=== PATIENT | female | born 1945 | race Caucasian/White ===

== ENCOUNTER 2018-11-22 14:53 | Observation (INO) | payer MEDICARE, OTHER ==
[~2018-11-22] VITALS: Ht 147.3 cm; Wt 43.1 kg
[2018-11-22] MEDS ORDERED: HYDROCODONE/APAP (5/325) TAB PO ONE (16:30)
[2018-11-22] MEDS ORDERED: ONDANSETRON 4 MG INJ IV PRN ×2 (19:30→20:00)
[2018-11-22] MEDS ORDERED: ACETAMINOPHEN 325 MG TAB PO PRN ×2 (19:30→20:00)
[2018-11-22] MEDS ORDERED: HYDROCODONE/APAP (5/325) TAB PO PRN (20:00)
[2018-11-22] MEDS ORDERED: NACL 0.9% 3 ML SYG IV SCH (20:00)
--- NOTE | 2018-11-22 20:35 | HP ---
Date/Time of Note Date/Time of Note DATE: 11/22/18 TIME: 20:34 Assessment/Plan VTE Prophylaxis Pharmacological prophylaxis: other Assessment/Plan Hospital Course Objective Physical exam General: Patient is laying in bed and answers questions appropriately Mentation: Patient is alert and oriented 4, Head: Normocephalic atraumatic Eyes: EOMI, pupils reactive to light Neck: Supple, nontender, midline Respiratory: Clear to auscultation bilaterally Cardiovascular: regular rate, no obvious murmurs Gastrointestinal: non-tender to palpation, bowel sounds heard. Neurological: Moves all extremities spontaneously Skin: No new skin lesions Assessment and plan Mechanical fall -Likely secondary to chronic worsening debility and degenerative spine disc disease -PT, OT -Lumbar spine negative for acute issues, chest x-ray and rib x-ray negative for acute fracture -Patient's pain also in the thoracic region, pending thoracic CT Left rib chest wall pain with back pain -Secondary to mechanical fall -[place] as needed Gastroparesis -Secondary to a long history of diabetes mellitus -Chronic, patient has outpatient follow-up Diabetes mellitus, questionable -Patient states she does not have diabetes mellitus anymore after losing a tremendous amount of weight -A1c pending Likely mitral valve regurgitation status post mitral clip device -Patient had a mitraclip procedure done at [facility], no complications, no medications prescribed afterwards History of SBO correction per surgery Disposition -Admit patient for inability to take care of self, high fall risk at home as she lives alone, PT, OT, likely placement -Follow-up with CT of the thoracic spine Result Diagram: 11/22/18194411/22/181944 Results 24hrs Laboratory Tests Test 11/22/18 19:45 White Blood Count 6.1 Red Blood Count 4.10 L Hemoglobin 12.2 Hematocrit 37.2 Mean Corpuscular Volume 90.7 Mean Corpuscular Hemoglobin 29.8 Mean Corpuscular Hemoglobin Concent 32.8 Red Cell Distribution Width 13.5 Platelet Count 179 Mean Platelet Volume 10.9 #H Immature Granulocytes % 0.300 Neutrophils % 70.6 Lymphocytes % 20.8 Monocytes % 6.1 Eosinophils % 1.5 Basophils % 0.7 Nucleated Red Blood Cells % 0.0 Immature Granulocytes # 0.020 Neutrophils # 4.3 Lymphocytes # 1.3 Monocytes # 0.4 Eosinophils # 0.1 Basophils # 0.0 Nucleated Red Blood Cells # 0.0 Urine Color YELLOW Urine Clarity SLIGHTLY CLOUDY A Urine pH 5.0 Urine Specific [place] 1.021 Urine Ketones NEGATIVE Urine Nitrite NEGATIVE Urine Bilirubin NEGATIVE Urine Urobilinogen NEGATIVE Urine Leukocyte Esterase 2+ H Urine Microscopic RBC 37 H Urine Microscopic WBC 30 H Urine Squamous Epithelial Cells FEW Urine Calcium Oxalate Crystals MODERATE Urine Mucus FEW A Urine Hemoglobin 2+ H Urine Glucose NEGATIVE Urine Total Protein NEGATIVE Sodium Level 144 Potassium Level 3.9 Chloride Level 104 Carbon Dioxide Level 27 Anion Gap 13 Blood Urea Nitrogen 26 H Creatinine 0.84 Est Glomerular Filtrat Rate mL/min Glucose Level 174 Calcium Level 9.5 HPI/ROS Admit Date/Time Admit Date/Time Hx of Present Illness Patient is a elderly female with a past medical history significant for prior diabetes that was corrected with extreme weight loss and subsequent gastroparesis as well as questionable heart valve issues and history of SBO who presents to [facility] for pain related to a mechanical fall approximately 3 days ago. Patient stated it was slippery and she fell on her left side and has been in pain for the past 3 days. Patient's pain has not subsided and subsequently patient came to the hospital. Patient states that recently she has becoming more weak and debilitated although there has been no acute incident. Patient has fallen multiple times in the past and currently seeks help and placement likely. 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 Patient currently denies chest pain, shortness of breath, headache, leg pain. Patient has chronic mild nausea and abdominal pain due to gastroparesis PMH/Family/Social Past Medical History Medications Current Medications IV Flush (NS 3 ml) 3 ml PER PROTOCOL IV ; Start 11/22/18 at 20:00 Ondansetron HCl (Zofran Inj) 4 mg Q6H PRN IV NAUSEA/VOMITING; Start 11/22/18 at 20:00 Acetaminophen (Tylenol Tab) 650 mg Q6H PRN PO .PAIN 1-3 OR TEMP; Start 11/22/18 at 20:00 Acetaminophen/ Hydrocodone Bitart ([place] (5/325)) 1 tab Q6H PRN PO .PAIN 4-6; Start 11/22/18 at 20:00 Coded Allergies: propofol (Verified Allergy, Intermediate, shaking, delusions, 11/22/18) hydromorphone (Verified Allergy, Unknown, HALLUCINATIONS,RASH,DIFFICULTY BREATHING,GI UPSET, 11/22/18) Social History Smoking Status: Never smoker Exam/Review of Systems Vital Signs Vitals Vital Signs Date Temp Pulse Resp B/P (MAP) Pulse Ox O2 O2 Flow FiO2 Time Delivery Rate 11/22/18 71 18 111/65 98 Room Air 17:20 (80) 11/22/18 98.6 14:55 LEONIDAS MUNOZ Nov 22, 2018 20:35
[2018-11-22 21:40] VITALS: BP 127/62; PULSE 70; RESP 18
--- NOTE | 2018-11-22 21:50 | NUR ---
RN NOTES: RECEIVED PATIENT FROM ER. PATIENT REPORTED THAT SHE FELL 3 DAYS AGO, AND HAD BACK PAIN TODAY AND WENT TO ER. ADMITTED FOR BACK PAIN DUE TO FALL. PATIENT IS ALERT AND ORIENTED. ABLE TO EXPRESS NEEDS. PATIENT HAD HX OF DM AND LOST A LOT OF WEIGHT AND DM BEEN RESOLVED. HX OF GASTROPARESIS, CARDIAC CLIP PLACEMENT. PATIENT IS COMFORTABLE AT THSI TIME. UNIT ORIENTATION GIVEN. FALL PRECAUTION INITIATED. CALL LIGHT WITHIN REACH.
[2018-11-22 22:27] VITALS: Ht 147.3 cm; Wt 43.1 kg
--- NOTE | 2018-11-22 22:33 | ERD ---
ER Documentation Chief Complaint Chief Complaint R81 fr home, back pain fell 3 days ago, ambulatory. HPI 73-year-old female brought in by ambulance from home with complaints of low back pain and left-sided chest pain after a ground-level fall about 4 days ago. She states that she tripped and fell onto her left side. Her pain has been severe, aching and sharp with movement, radiating across her lower back and across the left side of her chest. No alleviating factors. Exacerbated by movement. Pain is constant. Patient is unable to take NSAIDs due to her stomach. Patient feels she is unable to take care of herself at home while alone due to her symptoms. She denies any lower extremity numbness or weakness. No change in urinary or bowel habits. No dysuria. No hematuria. ROS All systems reviewed and are negative except as per history of present illness. Medications Home Meds Active Scripts Acetaminophen* (Tylenol*) 325 Mg Tablet, 650 MG PO Q4H PRN for MILD PAIN LEVEL 1-3, #30 TAB Prov:BARTOLOME ACKERMAN MD 11/23/18 Allergies Allergies: Coded Allergies: propofol (Verified Allergy, Intermediate, shaking, delusions, 11/22/18) hydromorphone (Verified Allergy, Unknown, HALLUCINATIONS,RASH,DIFFICULTY BREATHING,GI UPSET, 11/22/18) PMhx/Soc History of Surgery: Yes (gallbladder, hernia, r knee sx) Anesthesia Reaction: No Hx Neurological Disorder: No Hx Respiratory Disorders: No Hx Cardiac Disorders: Yes (Hypertension) Hx Psychiatric Problems: No Hx Miscellaneous Medical Probl: Yes (gastroporesis) Hx Alcohol Use: No Hx Substance Use: No Hx Tobacco Use: No Smoking Status: Never smoker FmHx Family History: No diabetes Physical Exam Vitals Vital Signs Date Temp Pulse Resp B/P (MAP) Pulse Ox O2 O2 Flow FiO2 Time Delivery Rate 11/22/18 71 18 111/65 98 Room Air 17:20 (80) 11/22/18 98.6 87 18 135/65 98 14:55 (88) Physical Exam Const: No acute distress Head: Atraumatic Eyes: Normal Conjunctiva ENT: Normal External Ears, Nose and Mouth. Neck: Full range of motion. No meningismus. Resp: Clear to auscultation bilaterally Chest wall: Left-sided chest wall tenderness without any irregularities noted or crepitus Cardio: Regular rate and rhythm, no murmurs. 2+ distal pulses in all 4 extremities Abd: Soft, non tender, non distended. Normal bowel sounds Skin: No petechiae or rashes Back: Diffuse midline and paraspinal muscle tenderness in the lumbar region Ext: Normal to inspection and palpation. No cyanosis, or edema Neur: Awake and alert, oriented x3, normal speech, no facial asymmetry, strength and sensations intact in all 4 extremities Psych: Normal Mood and Affect Result Diagram: 11/23/18 0453 11/23/183 Results 24 hrs Current Medications Medications Dose Sig/Andres Start Time Status Last (Trade) Ordered Route PRN Stop Time Admin Dose Reason Admin 1 tab ONCE ONCE 11/22/18 DC 11/22/18 Acetaminophen PO 16:30 16:16 / 11/22/18 16:31 Hydrocodone Bitart ([place] (5/325)) Procedures/MDM EMERGENT LABS AND DIAGNOSTIC STUDIES: Lab Results above were reviewed and interpreted by me. CBC: Mild anemia. No evidence of infection BMP: Mild BUN elevation, possibly secondary to dehydration. Past no evidence of electrolyte abnormality, renal failure, DKA UA: pending Radiology Results as interpreted by Radiology below were reviewed by Eva Mcdonald MD: CT lumbar spine shows no acute abnormalities, degenerative changes noted Chest x-ray and left rib x-ray show no signs of rib fractures or other acute abnormalities Initial Nursing notes reviewed. Previous Medical Records requested via the Electronic Health Record. EMERGENCY DEPARTMENT COURSE / MEDICAL DECISION MAKING: Patient is presenting after a mechanical fall about 4 days ago with complaints of back pain and left-sided rib pain. Vitals are stable. She is neurovascularly intact. X-rays of the ribs were done and were normal. Chest x- ray was normal. Her lumbar spine CT did show extensive degenerative changes but no acute abnormalities. I doubt acute spinal cord compression. Patient was given oral [place] for pain. She states that there was only minimal improvement of her pain. She states that when she walks she has worsening pain. She does live alone and does not feel comfortable going home at this time due to her history of frequent falls and now with the back pain she feels that she is more prone to falling. I feel the patient is not safe for discharge home and will be admitted for PT evaluation and treatment. Accepting Care Team: Current data and ongoing care discussed. Time: Time of admission Primary Provider: Dr. Ludwig Thacker Outstanding Data: UA Departure Diagnosis: Primary Impression: Back pain Back pain location: low back pain Chronicity: acute Back pain laterality: left Sciatica presence: without sciatica Qualified Codes: M54.5 - Low back pain Additional Impressions: Falls Encounter type: initial encounter Qualified Codes: W19.XXXA - Unspecified fall, initial encounter Contusion of rib on left side Encounter type: initial encounter Qualified Codes: S20.212A - Contusion of left front wall of thorax, initial encounter Condition: Serious DRU MCDONALD MD Nov 22, 2018 22:33
--- NOTE | 2018-11-23 00:20 | NUR ---
RN NOTES FULL REPORT GIVEN TO ANNA BONILLA RN TO CONTINUE PLAN OF CARE.
[2018-11-23 02:15] VITALS: BP 107/55; PULSE 80; RESP 18
[2018-11-23 07:16] VITALS: BP 125/58; PULSE 83; RESP 18
--- NOTE | 2018-11-23 07:44 | NUR ---
End of Shift Summary: Pt is A&O x4. Vital signs within normal limits. No acute changes. Respiratory and hemodynamics remain stable. Patient denies chest pain, palpitations, shortness of breath, nausea, vomiting, headache, cough, or changes in bowel/bladder habits. Pt on regular diet. Pt is on bedrest status. Pt received norco for pain management. IV site is intact and asystematic. Safety precautions maintained throughout the shift. Bed in lowest position and bed alarm activated. Call light within reach. Hourly rounding rendered. All needs met.
--- NOTE | 2018-11-23 08:00 | NUR ---
OT EVAL: Therapy day number 1 Evaluation Start Time 08:00 Evaluation End Time 08:40 Evaluation Total Time 40 min Pain Intensity 5 (0-10) Patient Stated Goal for Pain Relief 0 (0-10) Pain Scale NUMERIC Pain Level Comment left shoulder Feeding Mechanics Independent Bed Mobility Supine to Sit Independent Transfer Sit to Stand Ability Supervised Bed Mobility Sit to Supine Independent Toileting Ability Supervised Assistive Devices Front Wheel Walker Hygiene Ability Independent Lower Extremity Dressing Independent Toileting Ability Supervised Toilet Transfer Ability Supervised Post Treatment Pain Intensity 5 (0-10) OT Technical Record Comment OT EVAL: 73 yo female presents s/p mechanical fall. CTs for lumbar spine, thoracic spine, ribs x-ray (-) acute. Lumbar spine CT shows multi-level DJD and stenosis . Precautions: None PLOF: Pt currently lives alone in a 1 story apt, 8 steps with rails to enter, with CG 3-4/wk. Edgar in home with no AD, 4WW and SBA for community ambulation. CLOF: Pt found supine in bed, is agreeable to OT . RN cleared pt for OT. Pt AOX4, stated 5/10 pain in her left shoulder and demonstrated BUE AROM WFL. Pt performed UB/LB dressing and h/g independently. Pt proceeded to completed toilet transfer and functional mob using FWW with supervision and good safety awareness. Pt left supine in bed with all needs met. RN notified. NO skilled OT warranted at this time as pt is independent/supervision with ADl's- D/C OT
--- NOTE | 2018-11-23 10:15 | NUR ---
PT EVALUATION Therapy day number 1 Evaluation Start Time 10:15 Evaluation End Time 11:15 Evaluation Total Time 60 min Subjective Current complaint of pain Pain Scale NUMERIC Pain Intensity 2 (0-10) Patient Stated Goal for Pain Relief 0 (0-10) Pain Level Comment pain in L arm and L chest Pre Treatment Vital Signs Stable Yes Supine to Sit Modified Independent Transfer Sit to Stand Ability Modified Independent Bed Mobility Sit to Supine Modified Independent Bed Transfer Ability Modified Independent Chair Transfer Ability Modified Independent Gait Assist Levels Modified Independent Assistive Devices None Ambulation Distance 300 feet Additional Gait Comments upright posture, reciprocal steps, good layla and step length Stair Climbing Ability Modified Independent Number of Stairs 8 Stairs Additional Stairs Assist Comments 8 stairs with FINANCIAL SALES ASSOCIATE and railing, 8 stairs with BUE on single rail Static Sitting Balance Good Dynamic Sitting Balance Good Standing Static Balance Good Dynamic Standing Balance Good Safety Judgement Good Activity Tolerance Good Equipment Present A pump Post Treatment Pain Intensity 0 0-10 Total Minutes 60 Total Units 4 PT Technical Record Comment 73 yo female presents s/p mechanical fall. CTs for lumbar spine, thoracic spine, ribs x-ray (-) acute. Lumbar spine CT shows multi-level DJD and stenosis . Precautions: None PLOF: Pt currently lives alone in a 1 story apt, 8 steps with rails to enter, with CG 3-4/wk. Edgar in home with no AD, 4WW and SBA for community ambulation. S: Pt found supine in bed, is agreeable to PT. RN cleared pt for activity. O: PT Evaluation complete, pt assisted back to bed with call light nearby, all needs met. No increase pain, nausea, dizziness, SOB with activity. Pt ambulated 300' Edgar with no AD, no LOB or buckling, and 8 steps Edgar with BUE on single railing. RN informed of pt response to activity. A: Pt demonstrates strong mobility throughout with good balance, strength, coordination, and tolerance for activity. Pt ambulated with upright posture, reciprocal steps, good layla, no LOB, with no AD. Pt is at her baseline, no skilled inpatient PT needed at this time. P: Discharge physical therapy. Pt is clear to DC from PT standpoint. No DME needed at this time.
--- NOTE | 2018-11-23 10:51 | PN ---
Date/Time of Note Date/Time of Note DATE: 11/23/18 TIME: 10:51 Assessment/Plan VTE Prophylaxis SCD contraindicated: low risk/ambulating Pharmacological prophylaxis: NA/contraindicated Pharm contraindication: patient refusal Lines/Catheters IV Catheter Type (from Nrsg): Saline Lock Urinary Cath still in place: No Assessment/Plan Assessment/Plan acute back pain S/P fall OA with spinal stenosis Paln: pain control, Physical therapy pt has Front wheel walker at home d/c home today Result Diagram: 11/23/18 0453 11/23/18 0453 Results 24hrs Laboratory Tests Test 11/22/18 19:45 11/23/18 04:53 White Blood Count 6.1 5.5 Red Blood Count 4.10 L 3.51 L Hemoglobin 12.2 10.4 L Hematocrit 37.2 32.0 L Mean Corpuscular Volume 90.7 91.2 Mean Corpuscular Hemoglobin 29.8 29.6 Mean Corpuscular Hemoglobin Concent 32.8 32.5 Red Cell Distribution Width 13.5 13.5 Platelet Count 179 169 Mean Platelet Volume 10.9 #H 11.8 H Immature Granulocytes % 0.300 0.400 Neutrophils % 70.6 63.1 Lymphocytes % 20.8 23.6 Monocytes % 6.1 9.5 Eosinophils % 1.5 2.7 Basophils % 0.7 0.7 Nucleated Red Blood Cells % 0.0 0.0 Immature Granulocytes # 0.020 0.020 Neutrophils # 4.3 3.5 Lymphocytes # 1.3 1.3 Monocytes # 0.4 0.5 Eosinophils # 0.1 0.2 Basophils # 0.0 0.0 Nucleated Red Blood Cells # 0.0 0.0 Urine Color YELLOW Urine Clarity SLIGHTLY CLOUDY A Urine pH 5.0 Urine Specific [place] 1.021 Urine Ketones NEGATIVE Urine Nitrite NEGATIVE Urine Bilirubin NEGATIVE Urine Urobilinogen NEGATIVE Urine Leukocyte Esterase 2+ H Urine Microscopic RBC 37 H Urine Microscopic WBC 30 H Urine Squamous Epithelial Cells FEW Urine Calcium Oxalate Crystals MODERATE Urine Mucus FEW A Urine Hemoglobin 2+ H Urine Glucose NEGATIVE Urine Total Protein NEGATIVE Sodium Level 144 141 Potassium Level 3.9 3.5 Chloride Level 104 106 Carbon Dioxide Level 27 26 Anion Gap 13 9 Blood Urea Nitrogen 26 H 27 H Creatinine 0.84 0.84 Est Glomerular Filtrat Rate mL/min Glucose Level 174 121 # Calcium Level 9.5 9.2 Hemoglobin A1c 5.4 Magnesium Level 1.7 Total Bilirubin 0.1 L Direct Bilirubin 0.00 Indirect Bilirubin 0.1 Aspartate Amino Transf (AST/SGOT) 27 Alanine Aminotransferase (ALT/SGPT) 18 Alkaline Phosphatase 62 Total Protein 6.8 Albumin 3.8 Globulin 3.00 Albumin/Globulin Ratio 1.26 Exam/Review of Systems Exam Vitals Vital Signs Date Temp Pulse Resp B/P (MAP) Pulse Ox O2 O2 Flow FiO2 Time Delivery Rate 11/23/18 98.0 83 18 125/58 100 Room Air 07:16 (80) Intake and Output 11/22/18 11/22/18 11/23/18 1515:00 23:00 07:00 IntakeIntake Total 300 ml 150 ml BalanceBalance 300 ml 150 ml Results Results 24hrs Laboratory Tests Test 11/22/18 19:45 11/23/18 04:53 White Blood Count 6.1 5.5 Red Blood Count 4.10 L 3.51 L Hemoglobin 12.2 10.4 L Hematocrit 37.2 32.0 L Mean Corpuscular Volume 90.7 91.2 Mean Corpuscular Hemoglobin 29.8 29.6 Mean Corpuscular Hemoglobin Concent 32.8 32.5 Red Cell Distribution Width 13.5 13.5 Platelet Count 179 169 Mean Platelet Volume 10.9 #H 11.8 H Immature Granulocytes % 0.300 0.400 Neutrophils % 70.6 63.1 Lymphocytes % 20.8 23.6 Monocytes % 6.1 9.5 Eosinophils % 1.5 2.7 Basophils % 0.7 0.7 Nucleated Red Blood Cells % 0.0 0.0 Immature Granulocytes # 0.020 0.020 Neutrophils # 4.3 3.5 Lymphocytes # 1.3 1.3 Monocytes # 0.4 0.5 Eosinophils # 0.1 0.2 Basophils # 0.0 0.0 Nucleated Red Blood Cells # 0.0 0.0 Urine Color YELLOW Urine Clarity SLIGHTLY CLOUDY A Urine pH 5.0 Urine Specific [place] 1.021 Urine Ketones NEGATIVE Urine Nitrite NEGATIVE Urine Bilirubin NEGATIVE Urine Urobilinogen NEGATIVE Urine Leukocyte Esterase 2+ H Urine Microscopic RBC 37 H Urine Microscopic WBC 30 H Urine Squamous Epithelial Cells FEW Urine Calcium Oxalate Crystals MODERATE Urine Mucus FEW A Urine Hemoglobin 2+ H Urine Glucose NEGATIVE Urine Total Protein NEGATIVE Sodium Level 144 141 Potassium Level 3.9 3.5 Chloride Level 104 106 Carbon Dioxide Level 27 26 Anion Gap 13 9 Blood Urea Nitrogen 26 H 27 H Creatinine 0.84 0.84 Est Glomerular Filtrat Rate mL/min Glucose Level 174 121 # Calcium Level 9.5 9.2 Hemoglobin A1c 5.4 Magnesium Level 1.7 Total Bilirubin 0.1 L Direct Bilirubin 0.00 Indirect Bilirubin 0.1 Aspartate Amino Transf (AST/SGOT) 27 Alanine Aminotransferase (ALT/SGPT) 18 Alkaline Phosphatase 62 Total Protein 6.8 Albumin 3.8 Globulin 3.00 Albumin/Globulin Ratio 1.26 Medications Medication Current Medications IV Flush (NS 3 ml) 3 ml PER PROTOCOL IV ; Start 11/22/18 at 20:00 Ondansetron HCl (Zofran Inj) 4 mg Q6H PRN IV NAUSEA/VOMITING; Start 11/22/18 at 20:00 Acetaminophen (Tylenol Tab) 650 mg Q6H PRN PO .PAIN 1-3 OR TEMP; Start 11/22/18 at 20:00 Acetaminophen/ Hydrocodone Bitart ([place] (5/325)) 1 tab Q6H PRN PO .PAIN 4-6 Last administered on 11/23/18at 00:08; Admin Dose 1 TAB; Start 11/22/18 at 20:00 BARTOLOME ACKERMAN MD Nov 23, 2018 10:51
--- NOTE | 2018-11-23 10:53 | PDOCDIS ---
Discharge Instructions CONDITION [id number] Patient Condition: [id number] Good HOME CARE INSTRUCTIONS: [id number] Diet Instructions: [id number] Regular ACTIVITY: [id number] Activity Restrictions: [id number] Slowly Increase Activity Rest between Activity Avoid heavy lifting Avoid Heavy Housework FOLLOW UP/APPOINTMENTS Follow-up Plan follow up with her own PCP in 1-2 weeks BARTOLOME ACKERMAN MD Nov 23, 2018 10:53
[2018-11-23] MEDS ORDERED: ACET325T33 PO (10:54)
--- NOTE | 2018-11-23 11:49 | NUR ---
Discharge Pt to be DC'd home per MD orders. Pt a/a/o x 4. Denies pain, SOB or discomfort at this time. Pt aware MD discharged her home. Pt stated she would like "a voucher to get home". Inquired about other possible transportation home, possibly a neighbor or friend. pt stated all family/friends are working so nobody available at this time. Per P.T., pt's gait stable w/wo FWW, and safe to be discharged home by taxi. IV HL DC'd. DC instructions provided, all questions answered, pt verbalized understanding. Pt off unit via wheelchair, escorted by volunteer. With rx, DC instructions and belongings on hand. Taxi voucher provided, and transportation arrived for roller picker. No change in condition at this time.
--- NOTE | 2018-11-23 22:38 | DS ---
Date/Time of Note Date/Time of Note DATE: 11/23/18 TIME: 22:38 Discharge Summary Admission/Discharge Info Admit Date/Time Nov 22, 2018 at 19:15 Discharge Date/Time Nov 23, 2018 at 11:45 Discharge Diagnosis 1. S/p Mechanical fall 2. Left rib chest wall pain with back pain 3. Gastroparesis 4. Diabetes mellitus, questionable 5. Likely mitral valve regurgitation status post mitral clip device 6. History of SBO before 7. Severe OA of Lumbar spine 8. Moderate to severe Lumbar Spine stenosis Patient Condition: Good Consults Physical therapy consult Procedures None Hx of Present Illness 73 Female with a past medical history significant for prior diabetes that was corrected with extreme weight loss and subsequent gastroparesis as well as questionable heart valve issues and history of SBO who presents to [facility] for pain related to a mechanical fall approximately 3 days ago. Patient stated it was slippery and she fell on her left side and has been in pain for the past 3 days. Patient's pain has not subsided and subsequently patient came to the hospital. Patient states that recently she has becoming more weak and debilitated although there has been no acute incident. Patient has fallen multiple times in the past and currently seeks help and placement likely. Patient lives alone but does have a support service tech. Patient currently denies chest pain, shortness of breath, headache, leg pain. Patient has chronic mild nausea and abdominal pain due to gastroparesis7 Hospital Course she was admitted to med/surge received IVF, pain contro Physical therpay given and sent home pt has Front wheel walker at home Home Meds Active Scripts Acetaminophen* (Tylenol*) 325 Mg Tablet, 650 MG PO Q4H PRN for MILD PAIN LEVEL 1-3, #30 TAB Prov:BARTOLOME ACKERMAN MD 11/23/18 Follow-up Plan follow up with her own PCP in 1-2 weeks Primary Care Provider Not On Staff Doctor Time spent on discharge: > 30 minutes Pending Labs Laboratory Tests Test 11/23/18 04:53 White Blood Count 5.5 10^3/ul (4.8-10.8) Red Blood Count 3.51 10^6/ul (4.20-5.40) Hemoglobin 10.4 g/dl (12.0-16.0) Hematocrit 32.0 % (37.0-47.0) Mean Corpuscular Volume 91.2 fl (82.0-101.0) Mean Corpuscular Hemoglobin 29.6 pg (29.0-33.0) Mean Corpuscular Hemoglobin Concent 32.5 g/dl (32.0-37.0) Red Cell Distribution Width 13.5 % (11.5-14.5) Platelet Count 169 10^3/UL (140-415) Mean Platelet Volume 11.8 fl (7.4-10.4) Immature Granulocytes % 0.400 % (0.001-0.429) Neutrophils % 63.1 % (39.0-77.0) Lymphocytes % 23.6 % (15.0-51.0) Monocytes % 9.5 % (0.0-11.0) Eosinophils % 2.7 % (0.0-7.0) Basophils % 0.7 % (0.0-2.0) Nucleated Red Blood Cells % 0.0 /100WBC (0.0-0.0) Immature Granulocytes # 0.020 10^3/ul (0.0-0.031) Neutrophils # 3.5 10^3/ul (1.6-7.5) Lymphocytes # 1.3 10^3/ul (0.8-2.9) Monocytes # 0.5 10^3/ul (0.3-0.9) Eosinophils # 0.2 10^3/ul (0.0-0.5) Basophils # 0.0 10^3/ul (0.0-0.1) Nucleated Red Blood Cells # 0.0 10^3/ul (0.0-0.0) Sodium Level 141 mmol/L (135-144) Potassium Level 3.5 mmol/L (3.5-5.1) Chloride Level 106 mmol/L (97-110) Carbon Dioxide Level 26 mmol/L (21-31) Anion Gap 9 (5-13) Blood Urea Nitrogen 27 mg/dl (7-20) Creatinine 0.84 mg/dl (0.44-1.00) Est Glomerular Filtrat Rate mL/min mL/min (>60) Glucose Level 121 mg/dl (70-220) Hemoglobin A1c 5.4 % (0-5.9) Calcium Level 9.2 mg/dl (8.4-10.2) Magnesium Level 1.7 mg/dl (1.7-2.5) Total Bilirubin 0.1 mg/dl (0.2-1.3) Direct Bilirubin 0.00 mg/dl (0.00-0.20) Indirect Bilirubin 0.1 mg/dl (0-1.1) Aspartate Amino Transf (AST/SGOT) 27 IU/L (15-46) Alanine Aminotransferase (ALT/SGPT) 18 IU/L (13-69) Alkaline Phosphatase 62 IU/L (42-121) Total Protein 6.8 g/dl (6.1-8.1) Albumin 3.8 g/dl (3.3-4.9) Globulin 3.00 g/dl (1.3-3.2) Albumin/Globulin Ratio 1.26 BARTOLOME ACKERMAN MD Nov 23, 2018 22:38
== END 2018-11-23 11:45 | disposition home or self-care (01) ==
LOC: E/R 14:53 → MS1 19:15
PROVIDERS: ADMIT Internal Medicine; ATTEND Internal Medicine
DX: R07.89 Other chest pain (principal); M54.5 Low back pain; W01.0XXA Fall on same level from slipping, tripping and stumbling without subsequent striking against object, initial encounter; E11.43 Type 2 diabetes mellitus with diabetic autonomic (poly)neuropathy; K31.84 Gastroparesis; M48.061 Spinal stenosis, lumbar region without neurogenic claudication; M47.896 Other spondylosis, lumbar region
CPT/HCPCS: 36415; 71045; 71100; 72128; 72131; 80048; 80053; 81001; 83036; 83735; 85025; 97161; 97167; 99285; G0378

== ENCOUNTER 2019-01-13 19:40 | Emergency (ER) | payer MEDICARE, OTHER ==
[~2019-01-13] VITALS: Ht 147.3 cm; Wt 49.1 kg
[~2019-01-13 19:40] MED LIST: ACET325T33 PO
[2019-01-13 19:42] VITALS: Ht 147.3 cm; Wt 49.1 kg
[2019-01-13] MEDS ORDERED: SOD CHLORIDE 0.9% 1,000 ML IV STA (21:11)
[2019-01-13] MEDS ORDERED: NITR-58 PO (22:57)
--- NOTE | 2019-01-13 22:58 | ERD ---
ER Documentation Chief Complaint Chief Complaint BIB RA FROM HOME W/ C/O DIZZINESS, BLURRY VISION AND HIGH BP X1HR HPI 74-year-old female brought in by ambulance from home complaining of dizziness blurry vision and high blood pressure for the past 1 hour. She states that over the past few days she has been feeling more and more unsteady on her feet. She has also noticed some blurry vision that has also been progressive over several days. She has not discussed this with her primary care doctor. However her vision got worse today and she became very frightened, so ambulance was called. They noted her blood pressure to be high with a systolic blood pressure in the 170s. Patient states that she is usually under the 120s. She denies any focal weakness or numbness. No room spinning dizziness. No double vision. No nausea or vomiting. ROS All systems reviewed and are negative except as per history of present illness. Medications Home Meds Active Scripts Nitrofurantoin Monohyd Macrocr* (Macrobid*) 100 Mg Capsr, 100 MG PO BID for 10 Days, CAP Prov:DRU MARIEE MD 01/13/19 Acetaminophen* (Tylenol*) 325 Mg Tablet, 650 MG PO Q4H PRN for MILD PAIN LEVEL 1-3, #30 TAB Prov:BARTOLOME ACKERMAN MD 11/23/18 Allergies Allergies: Coded Allergies: propofol (Verified Allergy, Intermediate, shaking, delusions, 11/22/18) hydromorphone (Verified Allergy, Unknown, HALLUCINATIONS,RASH,DIFFICULTY BREATHING,GI UPSET, 11/22/18) PMhx/Soc History of Surgery: Yes (GASTRIC SX 2017, HEART SX 2017, HERNIA SX) Anesthesia Reaction: No Hx Neurological Disorder: No Hx Respiratory Disorders: No Hx Cardiac Disorders: Yes (Hypertension, CHF) Hx Psychiatric Problems: No Hx Miscellaneous Medical Probl: Yes (DM questionable, gastroparsis) Hx Alcohol Use: No Hx Substance Use: No Hx Tobacco Use: No Smoking Status: Never smoker FmHx Family History: No diabetes Physical Exam Vitals Vital Signs Date Temp Pulse Resp B/P (MAP) Pulse Ox O2 O2 Flow FiO2 Time Delivery Rate 01/14/19 97.5 71 18 116/56 100 Room Air 01:40 (76) 01/14/19 98.2 67 16 140/73 100 Room Air 00:50 (95) 01/13/19 71 15 153/88 100 Room Air 20:00 (109) 01/13/19 97.9 71 19 153/81 100 19:42 (105) Physical Exam Const: No acute distress, well-appearing, nontoxic Head: Atraumatic Eyes: Normal Conjunctiva. PERRLA, EOMI, no nystagmus. Visual acuity OS 20/50 OD 20/30 ENT: Normal External Ears, Nose and Mouth. Neck: Full range of motion. No meningismus. Resp: Clear to auscultation bilaterally Cardio: Regular rate and rhythm, no murmurs. 2+ distal pulses in all 4 e xtremities Abd: Soft, non tender, non distended. Normal bowel sounds Skin: No petechiae or rashes Back: No midline or flank tenderness Ext: No cyanosis, or edema Neur: Awake and alert, oriented x3, normal speech, cranial nerves intact, strength and sensations intact in all 4 extremities. Steady but careful gait. Cerebellar exam is normal with rapid alternating movements and heel to alex Psych: Normal Mood and Affect Result Diagram: 01/13/19195201/13/191952 Results 24 hrs Laboratory Tests Test 01/13/19 19:53 01/13/19 21:59 White Blood Count 5.6 10^3/ul Red Blood Count 3.72 10^6/ul Hemoglobin 10.7 g/dl Hematocrit 33.2 % Mean Corpuscular Volume 89.2 fl Mean Corpuscular Hemoglobin 28.8 pg Mean Corpuscular Hemoglobin Concent 32.2 g/dl Red Cell Distribution Width 13.6 % Platelet Count 179 10^3/UL Mean Platelet Volume 11.1 fl Immature Granulocytes % 0.400 % Neutrophils % 69.9 % Lymphocytes % 18.6 % Monocytes % 6.6 % Eosinophils % 3.6 % Basophils % 0.9 % Nucleated Red Blood Cells % 0.0 /100WBC Immature Granulocytes # 0.020 10^3/ul Neutrophils # 3.9 10^3/ul Lymphocytes # 1.0 10^3/ul Monocytes # 0.4 10^3/ul Eosinophils # 0.2 10^3/ul Basophils # 0.1 10^3/ul Nucleated Red Blood Cells # 0.0 10^3/ul Prothrombin Time 12.8 Sec Prothrombin Time Ratio 1.0 INR International Normalized Ratio 0.95 Activated Partial Thromboplast Time 32.3 Sec Urine Color YELLOW Urine Clarity SLIGHTLY CLOUDY Urine pH 6.0 Urine Specific Stephenson 1.016 Urine Ketones NEGATIVE mg/dL Urine Nitrite NEGATIVE mg/dL Urine Bilirubin NEGATIVE mg/dL Urine Urobilinogen NEGATIVE mg/dL Urine Leukocyte Esterase 1+ Ab/ul Urine Microscopic RBC > 182 /HPF Urine Microscopic WBC 14 /HPF Urine Hemoglobin 3+ mg/dL Urine Glucose NEGATIVE mg/dL Urine Total Protein NEGATIVE mg/dl Sodium Level 145 mmol/L Potassium Level 3.2 mmol/L Chloride Level 103 mmol/L Carbon Dioxide Level 31 mmol/L Anion Gap 11 Blood Urea Nitrogen 24 mg/dl Creatinine 0.80 mg/dl Est Glomerular Filtrat Rate mL/min mL/min Glucose Level 114 mg/dl Calcium Level 9.1 mg/dl Troponin I < 0.012 ng/ml Bedside Urine pH (LAB) 5.5 Bedside Urine Protein (LAB) 2+ Bedside Urine Glucose (UA) Negative Bedside Urine Ketones (LAB) Negative Bedside Urine Blood 3+ Bedside Urine Nitrite (LAB) Negative Bedside Urine Leukocyte Esterase (L 1+ Current Medications Medications Dose Sig/Andres Start Time Status Last (Trade) Ordered Route PRN Stop Time Admin Dose Reason Admin Sodium 1,000 ml @ Q1H STAT 01/13/19 DC 01/13/19 Chloride 1,000 mls/hr IV 21:11 01/13/19 21:32 22:10 100 mg ONCE ONCE 01/13/19 DC 01/13/19 Nitrofurantoi PO 23:30 01/13/19 23:28 n 23:31 Macrocrystals (Macrobid) Ibuprofen 400 mg ONCE ONCE 01/14/19 DC 01/14/19 (Motrin) PO 00:00 01/14/19 00:18 00:02 Procedures/MDM EMERGENT LABS AND DIAGNOSTIC STUDIES: Lab Results above were reviewed and interpreted by me. CBC: Mild anemia, no evidence of infection CMP: Mild hyponatremia and elevated BUN, likely due to dehydration. Mild hyp okalemia. No evidence of clinically significant electrolyte abnormality, acidosis, renal failure, hypoglycemia Troponin within normal limits, not indicative of cardiac ischemia UA: evidence of infection 12-lead EKG was interpreted by Gonzalez Mariee MD: Normal Sinus Rhythm with ventricular rate of 67 beats per minute Normal axis Normal intervals No acute ST or T wave changes suggestive of acute ischemia or STEMI. Radiology Results as interpreted by Radiology below were reviewed by Eva Mariee MD: Chest x-ray shows no acute abnormalities CT head shows no acute abnormalities Initial Nursing notes reviewed. Previous Medical Records requested via the Electronic Health Record. EMERGENCY DEPARTMENT COURSE / MEDICAL DECISION MAKING: Patient is presenting with progressive dizziness and blurry vision. Blood pressure was noted to be slightly elevated, however the patient states this is very elevated for her. CT head did not show any evidence of recent stroke. No intracranial hemorrhage. Labs showed evidence of dehydration and UTI. She was given IV fluids and a dose of oral antibiotics while here. She did have improvement of her symptoms. I do not feel the patient requires admission at this time. There is no evidence of hypertensive emergency or urgency. Her blood pressure actually improved while she was here without intervention. The patient was counseled about the risks of hypertension and urged to pursue outpatient monitoring and therapy within a week with their primary care physician. I also recommended she follow-up with an middle school librarian or bung remover to get her eyes checked. Departure Diagnosis: Primary Impression: Hypertension Hypertension type: unspecified Qualified Codes: I10 - Essential (primary) hypertension Additional Impressions: UTI (urinary tract infection) Urinary tract infection type: site unspecified Hematuria presence: with hematuria Qualified Codes: N39.0 - Urinary tract infection, site not specified; R31.9 - Hematuria, unspecified Blurry vision, left eye Condition: Stable Patient Instructions: Understanding Urinary Tract Infections (UTIs), High Blood Pressure (Hypertension), Blurred Vision Additional Instructions: Make an appointment to see her primary care doctor in the next 2-3 days. Follow-up with an bung remover as well. If any of your symptoms worsen, return to the ER immediately. Monitor your blood pressure at home and take the record to your primary care doctor. EKMEKJIAN,NELLIE R. MD Jan 13, 2019 22:58
[2019-01-13] MEDS ORDERED: NITROFURANTOIN (SR) 100 MG CAP PO ONE (23:30)
[2019-01-14] MEDS ORDERED: IBUPROFEN 200 MG TAB PO ONE
[2019-01-14 01:40] VITALS: BP 116/56; PULSE 71; RESP 18
== END 2019-01-14 01:40 | disposition home or self-care (01) ==
LOC: E/R 19:40
DX: I11.0 Hypertensive heart disease with heart failure (principal); I50.9 Heart failure, unspecified; E11.9 Type 2 diabetes mellitus without complications; N39.0 Urinary tract infection, site not specified; H53.8 Other visual disturbances
CPT/HCPCS: 36415; 70450; 71045; 80048; 81001; 84484; 85025; 85610; 85730; 96360; 99285; J7030; 81003

== ENCOUNTER 2019-01-26 19:10 | Emergency (ER) | payer MEDICARE, OTHER ==
[~2019-01-26] VITALS: Ht 147.3 cm; Wt 48.8 kg
[~2019-01-26 19:10] MED LIST changes: +NITR-58 PO
[2019-01-26 19:13] VITALS: BP 187/87; PULSE 72; RESP 18; Ht 147.3 cm; Wt 48.8 kg
[2019-01-26] MEDS ORDERED: IBUPROFEN 600 MG TAB PO ONE (22:00)
[2019-01-26] MEDS ORDERED: predniSONE 20 MG TAB PO ONE (22:00)
--- NOTE | 2019-01-26 22:05 | ERD ---
ER Documentation Chief Complaint Chief Complaint right foot pain x 3 weeks, denies trauma HPI This is a 73-year-old female presents ED with complaints of nontraumatic right x3 days. Patient denies any fall or injury to account for right anterior foot pain. Patient localizes pain to the anterior lateral midfoot. Admits to swelling and states that she can barely let his sheet touch it due to pain. Denies history of gout. Denies alcohol use, and states that she does not eat a lot of red meat or seafood. Ambulating okay but painful. Denies fever, chills, weakness, warmth, purulent draiange, numbness, lack of sensation, chest pain, shortness breath, trouble breathing, and all other symptoms. ROS All systems reviewed and are negative except as per history of present illness. Medications Home Meds Active Scripts Nitrofurantoin Monohyd Macrocr* (Macrobid*) 100 Mg Capsr, 100 MG PO BID for 10 Days, CAP Prov:DRU MARIEE MD 01/13/19 Acetaminophen* (Tylenol*) 325 Mg Tablet, 650 MG PO Q4H PRN for MILD PAIN LEVEL 1-3, #30 TAB Prov:BARTOLOME ACKERMAN MD 11/23/18 Allergies Allergies: Coded Allergies: propofol (Verified Allergy, Intermediate, shaking, delusions, 11/22/18) hydromorphone (Verified Allergy, Unknown, HALLUCINATIONS,RASH,DIFFICULTY BREATHING,GI UPSET, 11/22/18) PMhx/Soc History of Surgery: Yes (GASTRIC SX 2017, HEART SX 2017, HERNIA SX) Anesthesia Reaction: No Hx Neurological Disorder: No Hx Respiratory Disorders: No Hx Cardiac Disorders: Yes (Hypertension, CHF) Hx Psychiatric Problems: No Hx Miscellaneous Medical Probl: Yes (DM questionable, gastroparsis) Hx Alcohol Use: No Hx Substance Use: No Hx Tobacco Use: No Smoking Status: Never smoker FmHx Family History: No diabetes Physical Exam Vitals Vital Signs Date Temp Pulse Resp B/P (MAP) Pulse Ox O2 O2 Flow FiO2 Time Delivery Rate 01/26/19 97.3 72 18 187/87 97 19:13 (120) Physical Exam Physical Exam Vitals signs: Reviewed by me. General: Well developed, well nourished, in no acute distress. Patient is awake and alert. Head: Normocephalic, atraumatic. Eyes: Normal conjunctiva, Pupils PERRLA, EOM intact grossly ENT: Pharynx is clear, Moist mucous membranes, external ears, nose and mouth normal Neck: Supple, no masses, lymphadenopathy or JVD Respiratory: Clear to auscultation bilaterally with no wheezing, rhonchi, rales, no distress Cardiovascular: RRR, no murmurs, rubs, or gallops : Deferred MSK: Lower Extremity -right Skin: Mild swelling along patient's right mid lateral anterior foot, no redness Compartments: Soft Motor: Full active range of motion hip/knee/ankle/foot Sensation: Intact to light touch FDWS/MF/LF/P surfaces. Bones: moderate TTP along anterior lateral foot. Nontender pelvis/knee/proximal tibia/ malleoli/ Joints: No effusion or laxity Pulses/Perfusion: 2+ DP, Capillary refill < 2 seconds Neurologic: Alert and oriented, moving all extremities, normal speech, no focal weakness, no cerebellar signs. Normal mentation Skin: warm and dry, No rash Psych: anxious Results 24 hrs Current Medications Medications Dose Sig/Andres Start Time Status Last (Trade) Ordered Route PRN Stop Time Admin Dose Reason Admin Ibuprofen 600 mg ONCE ONCE 01/26/19 DC 01/26/19 (Motrin) PO 22:00 21:45 01/26/19 22:01 Prednisone 60 mg ONCE ONCE 01/26/19 DC 01/26/19 (Prednisone) PO 22:00 22:21 01/26/19 22:01 Procedures/MDM EKG, MONITORS, & DIAGNOSTIC IMAGING: [place] [address] Radiology Main Line: [phone] DIAGNOSTIC IMAGING REPORT Patient: MICHAEL MURPHY : 1945 Age: 73 Sex: F MR #: [id number] DOS: 01/26/192138 Ordering MD: JONN MATTSON PA-C Location: [facility]TE Room/Bed: PROCEDURE: XR right Foot. CLINICAL INDICATION: Pain TECHNIQUE: AP, lateral and oblique views of the right foot were obtained. The images were reviewed on a PACS workstation. 3 images COMPARISON: None. FINDINGS: Fractures: None. Lytic, blastic, or a erosive lesions: None. Bony alignment: Normal. Joint spaces: Normal. Calcaneal spurs: Small plantar Arterial calcifications: None. Soft tissue swelling: None. IMPRESSION: 1. Small plantar calcaneal spur, otherwise radiographically unremarkable right foot RPTAT:AAJJ Physician Nusrat Date Time Electronically viewed and signed by Amanda Barrientos Physician on 01/26/2019 23:27 GW/ CC: JONN MATTSON PA-C [id number] PROCEDURES: [None] LAB INTERPRETATION: [None] ER COURSE: The patient was given prednisone and ibuprofen The medication was well tolerated and the patient reports improvement in symptoms. The patient was stable throughout ED course. I kept the patient and/or family informed of laboratory and diagnostic imaging r esults throughout the emergency room course. The patient was promptly evaluated and a treatment plan was devised based on H&P and other data. This plan was discussed with the patient who agreed and had no further questions or concerns prior to discharge. MEDICAL DECISION MAKIN-year-old female presents ED with nontraumatic right anterior foot pain x3 days. Given history and physical examination this likely could be gout. X-ray was ordered to rule out osteomyelitis. Will send patient home with prednisone and ibuprofen. xray shows a small calcaneal spur but is otherwise unremarkable. Advised patient follow-up with her primary care physician for further work-up and possibly marketing technology specialist. At this time there is no orthopedic emergency. History and physical examination other data not consistent with emergent processes including but not limited to fracture, dislocation, tendon rupture, ischemia, neurovascular injury, compartment syndrome, septic joint, avascular necrosis, osteomyelitis, necrotizing fasciitis, septic joint, septic arthritis, or other emergent conditions. Patient's vitals are stable and can be managed outpatient with close follow-up. Advised patient to follow-up with primary care in the next 48 hours. Return to ED with any worsening symptoms. DISPOSITION PLAN: We discussed follow up with the patient's primary care doctor within 24 to 48 hours. Patient counseled regarding my diagnostic impression and care plan. Prior to discharge all questions answered. Pt agrees with treatment plan and understands strict return precautions. Precautionary instructions provided including instructions to return to the ER if not improving or for any worsening or changing symptoms or concerns. SPECIALIST FOLLOW UP RECOMMENDED: ortho Patient has been advised to follow up with primary care in 1-2 days. Disclaimer: Inadvertent spelling and grammatical errors are likely due to E HR/dictation software use and do not reflect on the overall quality of patient care. Also, please note that the electronic time recorded on this note does not necessarily reflect the actual time of the patient encounter. Blood Pressure Assessment: Patient's blood pressure was elevated (>120/80) but appears stable without evidence of hypertension emergency or urgency. The patient was counseled about the risks of hypertension and urged to pursue outpatient monitoring and therapy within a week with their primary care physician. Departure Diagnosis: Primary Impression: Foot pain Laterality: right Qualified Codes: M79.671 - Pain in right foot Condition: Stable Patient Instructions: R.I.C.E., What Is Gout?, Treating Gout Attacks, Sprain Foot Referrals: [facility] YOU HAVE RECEIVED A MEDICAL SCREENING EXAM AND THE RESULTS INDICATE THAT YOU DO NOT HAVE A CONDITION THAT REQUIRES URGENT TREATMENT IN THE EMERGENCY DEPARTMENT. FURTHER EVALUATION AND TREATMENT OF YOUR CONDITION CAN WAIT UNTIL YOU ARE SEEN IN YOUR DOCTORS OFFICE WITHIN THE NEXT 1-2 DAYS. IT IS YOUR RESPONSIBILITY TO MAKE AN APPOINTMENT FOR FOLOW-UP CARE. IF YOU HAVE A PRIMARY DOCTOR --you should call your primary doctor and schedule an appointment IF YOU DO NOT HAVE A PRIMARY DOCTOR YOU CAN CALL OUR PHYSICIAN REFERRAL HOTLINE AT IF YOU CAN NOT AFFORD TO SEE A PHYSICIAN YOU CAN CHOSE FROM THE FOLLOWING [facility] [address] [facility] [address] [facility] [address] [facility] [address] [facility] [address] [facility]. [facility]. [address] Additional Instructions: Patient advised to return to the ED immediately for new or worsening symptoms. Patient advised to follow up with primary care provider in the next 24-48 hours. Patient verbalized understanding and agrees with treatment plan and course of action. If patient has no primary care they may follow up with one of the community clinics listed on the following page or one of the options listed below [facility] [address] [place] [id number] or [facility] [address] [place] [address] or [facility] [address] [place] [address] JONN MATTSON PA-C Jan 26, 2019 22:05
[2019-01-26] MEDS ORDERED: PRED20TA PO (23:35)
[2019-01-26] MEDS ORDERED: IBUP-1542 PO (23:35)
== END 2019-01-26 23:49 | disposition home or self-care (01) ==
LOC: FTE 19:10
DX: M79.671 Pain in right foot (principal); I11.0 Hypertensive heart disease with heart failure; I50.9 Heart failure, unspecified
CPT/HCPCS: 73630; 99283; J7512

== ENCOUNTER 2019-02-02 19:41 | Emergency (ER) | payer MEDICARE, OTHER ==
[~2019-02-02] VITALS: Ht 147.3 cm; Wt 49.0 kg
[~2019-02-02 19:41] MED LIST changes: +IBUP-1542 PO; +PRED20TA PO
[2019-02-02 19:48] VITALS: BP 171/72; PULSE 79; RESP 16; Ht 147.3 cm; Wt 49.0 kg
--- NOTE | 2019-02-02 21:44 | ERD ---
ER Documentation Chief Complaint Chief Complaint repeated falling, dizziness and a rash HPI 73-year-old female, with history of multiple visits to the emergency department, presents to the emergency department, complaining of a pruritic rash for 1 week, the patient specifically, wants to know the reason of the rash. She reports taking Benadryl with mild improvement of the symptoms and makes her very dizzy. She denies fever, no chills, no recent falls. ROS All systems reviewed and are negative except as per history of present illness. Medications Home Meds Active Scripts Triamcinolone Acetonide (Triamcinolone Acetonide) 0.5% - 15 Gm Oint..gm., 1 APPLIC TOP BID, #1 TUB Prov:ZANDRA ARECHIGA MD 02/02/19 Prednisone* (Prednisone*) 20 Mg Tab, 40 MG PO DAILY for 4 Days, TAB Prov:JONN MATTSON PA-C 01/26/19 Ibuprofen* (Motrin*) 600 Mg Tab, 600 MG PO Q6, #30 TAB Prov:JONN MATTSON PA-C 01/26/19 Nitrofurantoin Monohyd Macrocr* (Macrobid*) 100 Mg Capsr, 100 MG PO BID for 10 Days, CAP Prov:DRU MARIEE MD 01/13/19 Acetaminophen* (Tylenol*) 325 Mg Tablet, 650 MG PO Q4H PRN for MILD PAIN LEVEL 1-3, #30 TAB Prov:BARTOLOME ACKERMAN MD 11/23/18 Allergies Allergies: Coded Allergies: propofol (Verified Allergy, Intermediate, shaking, delusions, 11/22/18) hydromorphone (Verified Allergy, Unknown, HALLUCINATIONS,RASH,DIFFICULTY BREATHING,GI UPSET, 11/22/18) PMhx/Soc History of Surgery: Yes (GASTRIC SX 2018, HEART SX 2018, HERNIA SX) Anesthesia Reaction: No Hx Neurological Disorder: No Hx Respiratory Disorders: No Hx Cardiac Disorders: Yes (Hypertension, CHF) Hx Psychiatric Problems: No Hx Miscellaneous Medical Probl: Yes (DM questionable, gastroparsis) Hx Alcohol Use: No Hx Substance Use: No Hx Tobacco Use: No Smoking Status: Never smoker FmHx Family History: diabetes; No coronary disease Physical Exam Vitals Vital Signs Date Temp Pulse Resp B/P (MAP) Pulse Ox O2 O2 Flow FiO2 Time Delivery Rate 02/02/19 98.5 79 16 171/72 99 19:48 (105) Physical Exam Patient alert, oriented, vital signs stable. HEAD: Normocephalic, atraumatic. EYES: PERRLA, EOMI, Sclera and conjunctiva appear normal. NOSE: Clear and patent nostrils. EARS: Canals clear, tympanic membranes WNL. MOUTH: normal lips and tongue, no oral lesions. THROAT: Normal oropharynx, no tonsillar exudates. NECK: Supple, No lymphadenopathy. Full ROM without pain or tenderness. HEART: RRR, no rubs, murmurs, clicks or gallops. LUNGS: Clear to auscultation. ABDOMEN: Soft, non-tender without masses or hepatosplenomegaly. EXTREMITIES: No edema bilaterally. BACK: Full ROM, no deformity, normal back exam NEURO: Cranial nerves grossly intact, no motor or sensory deficit SKIN: Scattered erythematous papules predominantly in upper extremities and shoulders. Procedures/MDM Vital signs stable, Differential diagnosis include but not limited to: Heat rash, contact dermatitis, viral exanthema, seborrheic dermatitis, scabies, acute allergic reaction, medication side effect. low suspicion for systemic infectious process, angioedema, anaphylactic shock. Physical examination and clinical presentation consistent most likely with dermatitis, likely atrophic. Results and clinical impression discussed with the patient who agree with management. The patient is stable to be treated outpatient and will be discharged home with a Rx for topical mild potency steroids, some side effects of prescribed medications (skin atrophy, nausea, vomiting, diarrhea, interactions with other medications) were reviewed. The patient needs a follow up with the primary care provider in the next 48h. If symptoms persist, worsen or new symptoms develop, then patient should return to the ED immediately. Instructions explained and given directly by me with acknowledgment and demonstrated understanding. Disclaimer: Inadvertent spelling and grammatical errors are likely due to EHR/dictation software use and do not reflect on the overall quality of patient care. Also, please note that the electronic time recorded on this note does not necessarily reflect the actual time of the patient encounter. Departure Diagnosis: Primary Impression: Eczema Condition: Stable Additional Instructions: Thank you very much for allowing us to participate in your care. Your health and safety is our top priority at [facility]. The evaluation in the emergency department has been done to rule out an acute emergency, therefore, chronic conditions like malignancy or other diseases have not been evaluated; therefore, you need to follow up with a primary care provider in the next 48h. If symptoms persist, worsen or new symptoms develop, then patient should return to the ED immediately. Call your primary care doctor TOMORROW for an appointment during the next 2-4 days and bring all the information provided. Have prescriptions filled and follow precisely the directions on the label. If the symptoms get worse and your provider is unavailable, return to the Emergency Department immediately. ZANDRA ARECHIGA MD Feb 02, 2019 21:44
[2019-02-02] MEDS ORDERED: TRIA15OI9 TOP (21:45)
== END 2019-02-02 22:00 | disposition home or self-care (01) ==
LOC: FTE 19:41
DX: L30.9 Dermatitis, unspecified (principal); I11.0 Hypertensive heart disease with heart failure; I50.9 Heart failure, unspecified; E11.9 Type 2 diabetes mellitus without complications
CPT/HCPCS: 99283

== ENCOUNTER 2019-02-06 14:08 | Observation (INO) | payer MEDICARE, OTHER ==
[~2019-02-06] VITALS: Ht 147.3 cm; Wt 47.0 kg
[~2019-02-06 14:08] MED LIST changes: +TRIA15OI9 TOP
[2019-02-06] MEDS ORDERED: SOD CHLORIDE 0.9% 1,000 ML IV STA (14:48)
[2019-02-06] MEDS ORDERED: ONDANSETRON 4 MG INJ IV STA (14:48)
--- NOTE | 2019-02-06 15:56 | ERD ---
ER Documentation Chief Complaint Chief Complaint PT BIB RA with complaint of nausea , AP and chills, dx with gastro-paresis. HPI This is a 73-year-old female who says she has a history of gastric volvulus and she has inability to vomit due to past surgery and that she is having same symptoms she had when she had a volvulus of nausea with epigastric discomfort with dry heaves like motions. She had a gastric volvulus last year and was treated at either [place] or [place] according to the patient. She says she has a history of gastroparesis and she is been unable to eat anything for the past 2 to 3 days ROS All systems reviewed and are negative except as per history of present illness. Medications Home Meds Discontinued Scripts Triamcinolone Acetonide (Triamcinolone Acetonide) 0.5% - 15 Gm Oint..gm., 1 APPLIC TOP BID, #1 TUB Prov:ZANDRA ARECHIGA MD 02/02/19 Prednisone* (Prednisone*) 20 Mg Tab, 40 MG PO DAILY for 4 Days, TAB Prov:JONN MATTSON PA-C 01/26/19 Ibuprofen* (Motrin*) 600 Mg Tab, 600 MG PO Q6, #30 TAB Prov:JONN MATTSON PA-C 01/26/19 Nitrofurantoin Monohyd Macrocr* (Macrobid*) 100 Mg Capsr, 100 MG PO BID for 10 Days, CAP Prov:DRU MARIEE MD 01/13/19 Acetaminophen* (Tylenol*) 325 Mg Tablet, 650 MG PO Q4H PRN for MILD PAIN LEVEL 1-3, #30 TAB Prov:BARTOLOME ACKERMAN MD 11/23/18 Allergies Allergies: Coded Allergies: propofol (Verified Allergy, Intermediate, shaking, delusions, 02/06/19) hydromorphone (Verified Allergy, Unknown, HALLUCINATIONS,RASH,DIFFICULTY BREATHING,GI UPSET, 02/06/19) PMhx/Soc History of Surgery: Yes (GASTRIC SX 2018, HEART SX 2018, HERNIA SX) Anesthesia Reaction: No Hx Neurological Disorder: No Hx Respiratory Disorders: No Hx Cardiac Disorders: Yes (Hypertension, CHF) Hx Psychiatric Problems: No Hx Miscellaneous Medical Probl: Yes (, gastroparesis) Hx Alcohol Use: No Hx Substance Use: No Hx Tobacco Use: No Smoking Status: Never smoker FmHx Family History: No coronary disease Physical Exam Vitals Vital Signs Date Temp Pulse Resp B/P (MAP) Pulse Ox O2 O2 Flow FiO2 Time Delivery Rate 02/06/19 70 16 131/69 100 Room Air 17:01 (89) 02/06/19 98.3 76 18 146/74 95 14:35 (98) Physical Exam Const: Well-developed, well-nourished Head: Atraumatic, normocephalic Eyes: Normal Conjunctiva, PERRLA, EOMI, normal sclera, no nystagmus ENT: Normal External Ears, Nose and Mouth, moist mucus membranes. Neck: Full range of motion. No meningismus, no lymphadenopathy. Resp: Clear to auscultation bilaterally, no wheezing, rhonchi, rales Cardio: Regular rate and rhythm, no murmurs, S1 S2 present Abd: Soft, non tender x 4, non distended. Normal bowel sounds, no g uarding or rebound, no pulsitile abdominal masses or bruits Skin: No petechiae or rashes, no ecchymosis , no maculopapular rash Back: No midline or flank tenderness Ext: No cyanosis, or edema, FROM x 4, normal inspection, neurovascularly intact x 4 Neur: Awake and alert, STR 5/5 x 4, sensation intact x 4, no focal findings, cerebellum intact Psych: Normal Mood and Affect Result Diagram: 02/06/19 1455 02/06/19 1455 Results 24 hrs Laboratory Tests Test 02/06/19 14:55 White Blood Count 6.6 10^3/ul Red Blood Count 3.94 10^6/ul Hemoglobin 11.4 g/dl Hematocrit 35.1 % Mean Corpuscular Volume 89.1 fl Mean Corpuscular Hemoglobin 28.9 pg Mean Corpuscular Hemoglobin Concent 32.5 g/dl Red Cell Distribution Width 13.5 % Platelet Count 197 10^3/UL Mean Platelet Volume 10.8 fl Immature Granulocytes % 0.500 % Neutrophils % 84.1 % Lymphocytes % 8.7 % Monocytes % 4.7 % Eosinophils % 1.4 % Basophils % 0.6 % Nucleated Red Blood Cells % 0.0 /100WBC Immature Granulocytes # 0.030 10^3/ul Neutrophils # 5.5 10^3/ul Lymphocytes # 0.6 10^3/ul Monocytes # 0.3 10^3/ul Eosinophils # 0.1 10^3/ul Basophils # 0.0 10^3/ul Nucleated Red Blood Cells # 0.0 10^3/ul Sodium Level 143 mmol/L Potassium Level 3.5 mmol/L Chloride Level 105 mmol/L Carbon Dioxide Level 28 mmol/L Anion Gap 10 Blood Urea Nitrogen 23 mg/dl Creatinine 0.85 mg/dl Est Glomerular Filtrat Rate mL/min mL/min Glucose Level 127 mg/dl Calcium Level 9.8 mg/dl Total Bilirubin 0.5 mg/dl Direct Bilirubin 0.00 mg/dl Indirect Bilirubin 0.5 mg/dl Aspartate Amino Transf (AST/SGOT) 29 IU/L Alanine Aminotransferase (ALT/SGPT) 16 IU/L Alkaline Phosphatase 101 IU/L Total Protein 8.1 g/dl Albumin 4.3 g/dl Globulin 3.80 g/dl Albumin/Globulin Ratio 1.13 Lipase 68 U/L Current Medications Medications Dose Sig/Andres Start Time Status Last (Trade) Ordered Route PRN Stop Time Admin Dose Reason Admin Sodium 1,000 ml @ Q1H STAT 02/06/19 DC 02/06/19 Chloride 1,000 mls/hr IV 14:48 14:59 02/06/19 15:47 Ondansetron 4 mg ONCE STAT 02/06/19 DC 02/06/19 HCl (Zofran IV 14:48 14:58 Inj) 02/06/19 14:49 Procedures/MDM MR #: [id number] DOS: 02/06/19 1518 Ordering MD: AVILA ESTEVES DO Location: E/R Room/Bed: PROCEDURE: CT Abdomen and Pelvis without contrast. CLINICAL INDICATION: Abdominal pain TECHNIQUE: CT of the abdomen and pelvis without IV contrast. Coronal and sagittal reformatted images. DICOM images are available. One or more of the following dose reduction techniques were used: automated exposure control, adjustment of the mA and/or kV according to patient size, use of iterative reconstruction technique. CTDI 6.7 mGy, DLP 333 mGy-cm. COMPARISON: None. FINDINGS: Lower thorax: Mitral clip is in place. Liver: Normal Biliary: Status post cholecystectomy. No biliary dilatation. Pancreas: Normal Spleen: Normal Adrenal glands: Normal Genitourinary: At least 3 calculi are present within the distal left ureter, with the largest measuring 7 mm (coronal image 52), causing minimal hydroureteronephrosis. Multiple bilateral nonobstructive renal calculi are seen as well. Benign left renal cyst is noted. Urinary bladder is grossly unremarkable. Vascular: No abdominal aortic aneurysm. Aortoiliac atherosclerotic calcifications. Lymph nodes: No lymphadenopathy. Gastrointestinal: No bowel obstruction. Normal appendix. Sigmoid diverticulosis, without diverticulitis. No evidence of colitis or gastric volvulus. Peritoneum: No free air, free fluid or abscess. Small fat-containing umbilical hernia. Reproductive organs: Status post hysterectomy. Musculoskeletal: Osteopenia. Degenerative enthesopathy of the spine. IMPRESSION: 1. At least 3 calculi are present within the distal left ureter, with the largest measuring 7 mm, causing minimal hydroureteronephrosis. Multiple bilateral nonobstructive renal calculi are seen as well. 2. Status post cholecystectomy and hysterectomy. 3. Sigmoid diverticulosis, without diverticulitis. 4. Small fat-containing umbilical hernia, without incarceration. 5. No evidence of bowel obstruction, abscess, mass or lymphadenopathy. 6. Osteopenia. RPTAT: [facility] .Donato Castillo MD, MD Date Time Electronically viewed and signed by .Donato Castillo MD, on 02/06/2019 16:42 .R/ CC: AVILA ESTEVES DO [id number] No evidence of gastric volvulus. The patient does have 3 ureter stones in her left ureter however she says she has absolutely no pain on that side and never has. The patient is stating she will not go home that she is having intractable vomiting for the past 3 days and she refuses to eat anything. She says she can really tolerate fluids. Will admit for obscure gastroparesis/intractable vomiting Departure Diagnosis: Primary Impression: Intractable vomiting Vomiting type: unspecified Nausea presence: with nausea Qualified Codes: R11.2 - Nausea with vomiting, unspecified Additional Impression: Gastroparesis Condition: Stable AVILA ESTEVES DO Feb 06, 2019 15:56
[2019-02-06] MEDS ORDERED: SOD CHLORIDE 0.9% 1,000 ML IV SCH (19:18)
[2019-02-06] MEDS ORDERED: ACETAMINOPHEN 325 MG TAB PO PRN (19:30)
--- NOTE | 2019-02-06 19:40 | HP ---
Date/Time of Note Date/Time of Note DATE: 02/06/19 TIME: 19:37 Assessment/Plan VTE Prophylaxis Pharmacological prophylaxis: heparin Lines/Catheters IV [facility]from [facility]ine [facility] Assessment/Plan Hospital Course 73 yo female with DMII and gastroparesis presents with worsening gastroparesis symptoms - Symptomatic care - IV fluids - Liquid diet Result Diagram: 02/06/19 1455 02/06/19 1455 Results 24hrs Laboratory Tests Test 02/06/19 14:55 White Blood Count 6.6 Red Blood Count 3.94 L Hemoglobin 11.4 L Hematocrit 35.1 L Mean Corpuscular Volume 89.1 Mean Corpuscular Hemoglobin 28.9 L Mean Corpuscular Hemoglobin Concent 32.5 Red Cell Distribution Width 13.5 Platelet Count 197 Mean Platelet Volume 10.8 H Immature Granulocytes % 0.500 H Neutrophils % 84.1 H Lymphocytes % 8.7 L Monocytes % 4.7 Eosinophils % 1.4 Basophils % 0.6 Nucleated Red Blood Cells % 0.0 Immature Granulocytes # 0.030 Neutrophils # 5.5 Lymphocytes # 0.6 L Monocytes # 0.3 Eosinophils # 0.1 Basophils # 0.0 Nucleated Red Blood Cells # 0.0 Sodium Level 143 Potassium Level 3.5 Chloride Level 105 Carbon Dioxide Level 28 Anion Gap 10 Blood Urea Nitrogen 23 H Creatinine 0.85 Est Glomerular Filtrat Rate mL/min Glucose Level 127 Calcium Level 9.8 Total Bilirubin 0.5 Direct Bilirubin 0.00 Indirect Bilirubin 0.5 Aspartate Amino Transf (AST/SGOT) 29 Alanine Aminotransferase (ALT/SGPT) 16 Alkaline Phosphatase 101 Total Protein 8.1 Albumin 4.3 Globulin 3.80 H Albumin/Globulin Ratio 1.13 Lipase 68 HPI/ROS Admit Date/Time Admit Date/Time Hx of Present Illness 73 yo female with h/o DM and gastroparesis here with symptomatic gastroparesis Can't eat Very nauseous all day Has tried every therapy, no benefit Feels like she is dying because she can't eat Doesn't want to try reglan again ROS Constitutional: no complaints, improved Eyes: no complaints ENT: no complaints Respiratory: no complaints Cardiovascular: no complaints Gastrointestinal: no complaints Genitourinary: no complaints Musculoskeletal: no complaints Skin: no complaints Neurologic: no complaints Endocrine: no complaints Lymphatic: no complaints Psychological: no complaints, nl mood/affect Immunologic: no complaints PMH/Family/Social Past Medical History Medical History: no pertinent history Medications Current Medications Sodium Chloride 1,000 ml @ 80 mls/hr [id number] IV Last administered on 02/06/19at 19:31; Admin Dose 80 MLS/HR; Start 02/06/19 at 19:18; Stop 02/07/19 at 07:47 Ondansetron HCl (Zofran Inj) 4 mg BRIDGE ORDER PRN IV NAUSEA/VOMITING; Start 02/06/19 at 19:30; Stop 02/07/19 at 19:29 Acetaminophen (Tylenol Tab) 650 mg ER BRIDGE PRN PO .MILD PAIN 1-3 OR TEMP; Start 02/06/19 at 19:30; Stop 02/07/19 at 19:29 Coded Allergies: propofol (Verified Allergy, Intermediate, shaking, delusions, 02/06/19) hydromorphone (Verified Allergy, Unknown, HALLUCINATIONS,RASH,DIFFICULTY BREATHING,GI UPSET, 02/06/19) Past Surgical History Past Surgical Hx: no surgical history Family History Significant Family History: no pertinent family hx Social History Alcohol Use: none Smoking Status: Never smoker Drug Use: none Exam/Review of Systems Vital Signs Vitals Vital Signs Date Temp Pulse Resp B/P (MAP) Pulse Ox O2 O2 Flow FiO2 Time Delivery Rate 02/06/19 67 16 115/68 100 Room Air 18:30 (84) 02/06/19 98.3 14:35 Exam Constitutional: alert, oriented, well developed Psych: no complaints, nl mood/affect Head: normocephalic, atraumatic Eyes: nl conjunctiva, EOMI, nl lids, nl sclera, PERRL ENMT: nl external ears & nose, nl lips & teeth, nl nasal mucosa & septum Neck: supple, non-tender Respiratory: clear to auscultation, normal air movement Cardiovascular: regular rate and rhythm, nl pulses Gastrointestinal: soft, nl liver, spleen, non-tender Musculoskeletal: nl extremities to inspection Extremities: normal pulses Neurological: INSULATION NOZZLEMAN II-XII intact, nl mental status, nl speech, nl strength Skin: nl turgor; No rash or lesions Lymph: nl lymph nodes LUZ BRYANT MD Feb 06, 2019 19:40
[2019-02-06] MEDS ORDERED: HYDROmorphONE 0.5 MG/0.5 ML SYG IV PRN (20:00)
[2019-02-06] MEDS ORDERED: NACL 0.9% 3 ML SYG IV SCH (20:00)
[2019-02-06] MEDS ORDERED: morphine 2 MG INJ IV PRN (20:30)
[2019-02-06] MEDS: ONDANSETRON 4 MG INJ IV PRN ×2 (20:51→23:03)
[2019-02-07 00:04] VITALS: Ht 147.3 cm; Wt 47.0 kg
[2019-02-07 01:01] VITALS: BP 132/62; PULSE 63; RESP 18
[2019-02-07 02:33] VITALS: BP 134/59; PULSE 63; RESP 18
[2019-02-07 07:25] VITALS: BP 126/60; PULSE 66; RESP 16
--- NOTE | 2019-02-07 10:52 | PDOCDIS ---
Discharge Instructions DIAGNOSIS Discharge Diagnosis Gastroparesis CONDITION [id number] Patient Condition: [id number] Stable FOLLOW UP/APPOINTMENTS Follow-up Plan Make an appointment to see a army ranger at [facility] or [facility] to discuss management of your gastroparesis LUZ BRYANT MD February 07, 2019 10:52
--- NOTE | 2019-02-07 13:15 | DS ---
Date/Time of Note Date/Time of Note DATE: 02/07/19 TIME: 13:11 Discharge Summary Admission/Discharge Info Admit Date/Time Feb 06, 2019 at 19:18 Discharge Date/Time Discharge Diagnosis Gastroparesis Patient Condition: Stable Hx of Present Illness 73 yo female with h/o DM and gastroparesis here with symptomatic gastroparesis Can't eat Very nauseous all day Has tried every therapy, no benefit Feels like she is dying because she can't eat Doesn't want to try reglan again Hospital Course 73 yo female with DMII and gastroparesis presents with worsening gastroparesis symptoms Patient was extremely histrionic. She claimed she couldn't eat though she was noted to have consumed her meals. She complained that she has gastroparesis that is "permanent" and "deadly". I offered her reglan therapy which she refused. I also offered her consultation with a crate builder which she also refused, saying "I have already seen specialists and they can't help me." I tried to reassure her that she does not show any signs of malnourishment and that she does not seem to be imminently dying. I suggested she see a specilaist at a tertiary center as there is not much i can do for her here. She seems to have had a flare up only over the last one day and I suggested that in the coming days or weeks her symptoms will likely subside to baseline. Regardless, she does not require further inpatient care as she is adequately hydrated and tolerating adequate PO, there is no therapy to be provided inpatient. Though clearly histrionic and upset I think outpatient care is entirely appropriate at this time Home Meds Discontinued Scripts Triamcinolone Acetonide (Triamcinolone Acetonide) 0.5% - 15 Gm Oint..gm., 1 AP PLIC TOP BID, #1 TUB Prov:ZANDRA ARECHIGA MD 02/02/19 Prednisone* (Prednisone*) 20 Mg Tab, 40 MG PO DAILY for 4 Days, TAB Prov:JONN MATTSON PA-C 01/26/19 Ibuprofen* (Motrin*) 600 Mg Tab, 600 MG PO Q6, #30 TAB Prov:JONN MATTSON PA-C 01/26/19 Nitrofurantoin Monohyd Macrocr* (Macrobid*) 100 Mg Capsr, 100 MG PO BID for 10 Days, CAP Prov:DRU MARIEE MD 01/13/19 Acetaminophen* (Tylenol*) 325 Mg Tablet, 650 MG PO Q4H PRN for MILD PAIN LEVEL 1-3, #30 TAB Prov:BARTOLOME ACKERMAN MD 11/23/18 Follow-up Plan Make an appointment to see a crate builder at [facility] or [facility] to discuss management of your gastroparesis Primary Care Provider Not On Staff Doctor Pending Labs Laboratory Tests Test 02/06/19 14:55 02/07/19 05:16 White Blood Count 6.6 10^3/ul (4.8-10.8) 5.2 10^3/ul (4.8-10.8) Red Blood Count 3.94 10^6/ul (4.20-5.40) 3.30 10^6/ul (4.20-5.40) Hemoglobin 11.4 g/dl (12.0-16.0) 9.5 g/dl (12.0-16.0) Hematocrit 35.1 % (37.0-47.0) 28.9 % (37.0-47.0) Mean Corpuscular Volume 89.1 fl (82.0-101.0) 87.6 fl (82.0-101.0) Mean Corpuscular 28.9 pg (29.0-33.0) 28.8 pg (29.0-33.0) Hemoglobin Mean Corpuscular 32.5 g/dl (32.0-37.0) 32.9 g/dl (32.0-37.0) Hemoglobin Concent Red Cell Distribution 13.5 % (11.5-14.5) 13.4 % (11.5-14.5) Width Platelet Count 197 10^3/UL (140-415) 173 10^3/UL (140-415) Mean Platelet Volume 10.8 fl (7.4-10.4) 11.3 fl (7.4-10.4) Immature Granulocytes % 0.500 % (0.001-0.429) 0.400 % (0.001-0.429) Neutrophils % 84.1 % (39.0-77.0) 74.7 % (39.0-77.0) Lymphocytes % 8.7 % (15.0-51.0) 15.7 % (15.0-51.0) Monocytes % 4.7 % (0.0-11.0) 6.3 % (0.0-11.0) Eosinophils % 1.4 % (0.0-7.0) 2.1 % (0.0-7.0) Basophils % 0.6 % (0.0-2.0) 0.8 % (0.0-2.0) Nucleated Red Blood Cells 0.0 /100WBC (0.0-0.0) 0.0 /100WBC (0.0-0.0) % Immature Granulocytes # 0.030 10^3/ul (0.0-0.031) 0.020 10^3/ul (0.0-0.031) Neutrophils # 5.5 10^3/ul (1.6-7.5) 3.9 10^3/ul (1.6-7.5) Lymphocytes # 0.6 10^3/ul (0.8-2.9) 0.8 10^3/ul (0.8-2.9) Monocytes # 0.3 10^3/ul (0.3-0.9) 0.3 10^3/ul (0.3-0.9) Eosinophils # 0.1 10^3/ul (0.0-0.5) 0.1 10^3/ul (0.0-0.5) Basophils # 0.0 10^3/ul (0.0-0.1) 0.0 10^3/ul (0.0-0.1) Nucleated Red Blood Cells 0.0 10^3/ul (0.0-0.0) 0.0 10^3/ul (0.0-0.0) # Sodium Level 143 mmol/L (135-144) 143 mmol/L (135-144) Potassium Level 3.5 mmol/L (3.5-5.1) 3.4 mmol/L (3.5-5.1) Chloride Level 105 mmol/L (97-110) 111 mmol/L (97-110) Carbon Dioxide Level 28 mmol/L (21-31) 25 mmol/L (21-31) Anion Gap 10 (5-13) 7 (5-13) Blood Urea Nitrogen 23 mg/dl (7-20) 15 mg/dl (7-20) Creatinine 0.85 mg/dl (0.44-1.00) 0.72 mg/dl (0.44-1.00) Est Glomerular Filtrat mL/min (>60) mL/min (>60) Rate mL/min Glucose Level 127 mg/dl (70-220) 119 mg/dl (70-220) Calcium Level 9.8 mg/dl (8.4-10.2) 8.9 mg/dl (8.4-10.2) Total Bilirubin 0.5 mg/dl (0.2-1.3) 0.4 mg/dl (0.2-1.3) Direct Bilirubin 0.00 mg/dl (0.00-0.20) 0.00 mg/dl (0.00-0.20) Indirect Bilirubin 0.5 mg/dl (0-1.1) 0.4 mg/dl (0-1.1) Aspartate Amino 29 IU/L (15-46) 22 IU/L (15-46) Transf (AST/SGOT) Alanine 16 IU/L (13-69) 16 IU/L (13-69) Aminotransferase (ALT/SGPT ) Alkaline Phosphatase 101 IU/L (42-121) 73 IU/L (42-121) Total Protein 8.1 g/dl (6.1-8.1) 6.3 g/dl (6.1-8.1) Albumin 4.3 g/dl (3.3-4.9) 3.3 g/dl (3.3-4.9) Globulin 3.80 g/dl (1.3-3.2) 3.00 g/dl (1.3-3.2) Albumin/Globulin Ratio 1.13 1.10 Lipase 68 U/L (23-300) Hemoglobin A1c 5.6 % (0-5.9) LUZ BRYANT MD February 07, 2019 13:15
== END 2019-02-07 11:55 | disposition home or self-care (01) ==
LOC: E/R 14:08 → PP2 19:18
PROVIDERS: ADMIT Family Medicine; ATTEND Family Medicine
DX: E11.43 Type 2 diabetes mellitus with diabetic autonomic (poly)neuropathy (principal); K31.84 Gastroparesis
CPT/HCPCS: 36415; 74176; 80053; 83036; 83690; 85025; 96374; 99285; G0378; J2270; J2405; J7030

== ENCOUNTER 2019-02-15 13:32 | Observation (INO) | payer MEDICARE, OTHER ==
[~2019-02-15] VITALS: Ht 147.3 cm; Wt 48.5 kg
--- NOTE | 2019-02-15 19:31 | ERD ---
ER Documentation Chief Complaint Chief Complaint low abd pain chronic issue for past few days. no n/v noted HPI This is a 73-year-old female with a history of chronic gastroparesis, who presents for evaluation of nausea and vomiting. Patient was been dealing with this problem for many years, she denies fever, she states that she has not been able to keep anything down. Her symptoms are intermittent, she has no chest pain or shortness of breath. ROS All systems reviewed and are negative except as per history of present illness. Medications Home Meds No Active Prescriptions or Reported Meds Allergies Allergies: Coded Allergies: propofol (Verified Allergy, Intermediate, shaking, delusions, 02/15/19) hydromorphone (Verified Allergy, Unknown, HALLUCINATIONS,RASH,DIFFICULTY BREATHING,GI UPSET, 02/15/19) PMhx/Soc History of Surgery: Yes (Hiatal Hernia, stents) Anesthesia Reaction: No Hx Neurological Disorder: No Hx Respiratory Disorders: No Hx Cardiac Disorders: Yes (Stents) Hx Psychiatric Problems: No Hx Miscellaneous Medical Probl: No Hx Alcohol Use: No Hx Substance Use: No Hx Tobacco Use: No Physical Exam Vitals Vital Signs Date Temp Pulse Resp B/P (MAP) Pulse Ox O2 O2 Flow FiO2 Time Delivery Rate 02/15/19 97.8 69 16 136/59 99 Room Air 19:45 (84) 02/15/19 98.0 78 18 129/88 98 13:37 (102) Physical Exam Const: Thin, elderly appearing female, mild distress Head: Atraumatic Eyes: Normal Conjunctiva ENT: Normal External Ears, Nose and Mouth. Neck: Full range of motion. No meningismus. Resp: Clear to auscultation bilaterally Cardio: Regular rate and rhythm, no murmurs Abd: Soft, diffusely tender, non distended, no rebound or guarding. Normal bowel sounds Skin: No petechiae or rashes Back: No midline or flank tenderness Ext: No cyanosis, or edema Neur: Awake and alert Psych: Normal Mood and Affect Result Diagram: 02/15/19 1950 02/15/191949 Results 24 hrs Laboratory Tests Test 02/15/19 19:50 02/15/19 19:57 White Blood Count 6.2 10^3/ul Red Blood Count 4.04 10^6/ul Hemoglobin 11.7 g/dl Hematocrit 36.3 % Mean Corpuscular Volume 89.9 fl Mean Corpuscular Hemoglobin 29.0 pg Mean Corpuscular Hemoglobin Concent 32.2 g/dl Red Cell Distribution Width 13.6 % Platelet Count 191 10^3/UL Mean Platelet Volume 11.5 fl Immature Granulocytes % 0.300 % Neutrophils % 68.0 % Lymphocytes % 19.7 % Monocytes % 7.5 % Eosinophils % 3.4 % Basophils % 1.1 % Nucleated Red Blood Cells % 0.0 /100WBC Immature Granulocytes # 0.020 10^3/ul Neutrophils # 4.2 10^3/ul Lymphocytes # 1.2 10^3/ul Monocytes # 0.5 10^3/ul Eosinophils # 0.2 10^3/ul Basophils # 0.1 10^3/ul Nucleated Red Blood Cells # 0.0 10^3/ul Sodium Level 143 mmol/L Potassium Level 3.6 mmol/L Chloride Level 105 mmol/L Carbon Dioxide Level 30 mmol/L Anion Gap 8 Blood Urea Nitrogen 25 mg/dl Creatinine 0.85 mg/dl Est Glomerular Filtrat Rate mL/min mL/min Glucose Level 129 mg/dl Calcium Level 9.4 mg/dl Total Bilirubin 0.4 mg/dl Direct Bilirubin 0.00 mg/dl Indirect Bilirubin 0.4 mg/dl Aspartate Amino Transf (AST/SGOT) 28 IU/L Alanine Aminotransferase (ALT/SGPT) 17 IU/L Alkaline Phosphatase 110 IU/L Troponin I < 0.012 ng/ml Total Protein 8.0 g/dl Albumin 4.3 g/dl Globulin 3.70 g/dl Albumin/Globulin Ratio 1.16 Lipase 102 U/L Urine Color YELLOW Urine Clarity CLOUDY Urine pH 5.0 Urine Specific [place] 1.025 Urine Ketones NEGATIVE mg/dL Urine Nitrite NEGATIVE mg/dL Urine Bilirubin NEGATIVE mg/dL Urine Urobilinogen NEGATIVE mg/dL Urine Leukocyte Esterase 3+ Ab/ul Urine Microscopic RBC > 182 /HPF Urine Microscopic WBC 117 /HPF Urine Squamous Epithelial Cells FEW /HPF Urine Bacteria FEW /HPF Urine Mucus FEW /HPF Urine Hemoglobin 3+ mg/dL Urine Glucose NEGATIVE mg/dL Urine Total Protein 2+ mg/dl Current Medications Medications Dose Sig/Andres Start Time Status Last (Trade) Ordered Route PRN Stop Time Admin Dose Reason Admin Ondansetron 4 mg ONCE STAT 02/15/19 DC 02/15/19 HCl (Zofran IV 19:32 02/15/19 20:06 Inj) 19:34 Sodium 1,350 ml BOLUS OVER 2 02/15/19 DC Chloride HOURS STAT 20:54 02/15/19 (NS) IV* 20:58 Ceftriaxone 50 ml @ ONCE STAT 02/15/19 Sodium 100 mls/hr IVPB 20:54 02/15/19 21:23 10 mg ONCE ONCE 02/15/19 Metoclopramid IV 21:00 02/15/19 e HCl 21:01 (Reglan) 25 mg ONCE ONCE 02/15/19 Diphenhydrami IV 21:00 02/15/19 ne HCl 21:01 (Benadryl) Procedures/MDM This is a 73-year-old female with a history of gastroparesis, who presents for nausea vomiting and abdominal pain. Patient had no signs of a surgical abdomen on exam, her abdominal x-ray showed nonspecific bowel gas pattern, did show a 6 mm stone at the left kidneys, with pyuria, raising the suspicion for an infected stone, that she will be treated with ceftriaxone, IV fluids and symptom control. Accepting Care Team: Current data and ongoing care discussed. Primary: Hugo Consulting: len Outstanding Data: none EKG: Rate/Rhythm: Normal Sinus Rhythm QRS, ST, T-waves: No changes consistent w/ acute ischemia Impression: No evidence of ischemia or arrhythmia Departure Diagnosis: Primary Impression: Kidney stone Additional Impressions: Abdominal pain Abdominal location: unspecified location Qualified Codes: R10.9 - Unspecified abdominal pain Gastroparesis Condition: Stable LEONIDAS KENNEDY MD February 15, 2019 19:31
[2019-02-15] MEDS ORDERED: ONDANSETRON 4 MG INJ IV STA (19:32)
[2019-02-15] MEDS ORDERED: CEFTRIAXONE 1 GM/50 ML (PMX) 50 ML IVPB STA (20:54)
[2019-02-15] MEDS ORDERED: SODIUM CHLORIDE 0.9% 1L BAG IV* STA (20:54)
[2019-02-15] MEDS ORDERED: DIPHENHYDRAMINE 50 MG INJ IV ONE (21:00)
[2019-02-15] MEDS ORDERED: METOCLOPRAMIDE 10 MG INJ IV ONE (21:00)
[2019-02-15 22:00] VITALS: BP 129/75; PULSE 81; RESP 18
[2019-02-15 23:04] VITALS: Ht 147.3 cm; Wt 48.5 kg
[2019-02-15] MEDS ORDERED: ALBUTEROL/IPRATROPIUM (NEB) 3 ML AMP HHN PRN (23:30)
[2019-02-15] MEDS ORDERED: NACL 0.9% 3 ML SYG IV SCH (23:30)
--- NOTE | 2019-02-15 23:50 | HP ---
Date/Time of Note Date/Time of Note DATE: 02/15/19 TIME: 23:50 Assessment/Plan VTE Prophylaxis Pharmacological prophylaxis: heparin Lines/Catheters IV Catheter Type (from Nrsg): Saline Lock Assessment/Plan Assessment/Plan 1. Chronic abdominal pain, nausea/vomiting: Possibly secondary to gastroparesis. Patient also with a history of hiatal hernia repair and likely SBO -Keep n.p.o. with IV fluid -Reglan -Consider erythromycin as well -Patient had EGD in 2013 here for persistent emesis, findings were benign. Small bowel follow-through from 2013 was also normal -Consider GI consult 2. Distal left ureteral stone, causing mild hydroureteronephrosis (per CT from 02/06/19) and left nephrolithiasis: -IV fluid -Consider Flomax or n.p.o. -Urology was consulted in the ER 3. UTI -IV antibiotic, IV fluids -Follow-up urine culture results today the morning 4. Result Diagram: 02/15/19 1950 02/15/19 1950 Results 24hrs Laboratory Tests Test 02/15/19 19:50 02/15/19 19:57 02/15/19 21:51 02/15/19 22:34 White Blood Count 6.2 Red Blood Count 4.04 #L Hemoglobin 11.7 #L Hematocrit 36.3 #L Mean Corpuscular Volume 89.9 Mean Corpuscular 29.0 Hemoglobin Mean Corpuscular 32.2 Hemoglobin Concent Red Cell Distribution 13.6 Width Platelet Count 191 Mean Platelet Volume 11.5 H Immature Granulocytes % 0.300 Neutrophils % 68.0 Lymphocytes % 19.7 Monocytes % 7.5 Eosinophils % 3.4 Basophils % 1.1 Nucleated Red Blood 0.0 Cells % Immature Granulocytes # 0.020 Neutrophils # 4.2 Lymphocytes # 1.2 Monocytes # 0.5 Eosinophils # 0.2 Basophils # 0.1 Nucleated Red Blood 0.0 Cells # Sodium Level 143 Potassium Level 3.6 Chloride Level 105 Carbon Dioxide Level 30 Anion Gap 8 Blood Urea Nitrogen 25 H Creatinine 0.85 Est Glomerular Filtrat Rate mL/min Glucose Level 129 Calcium Level 9.4 Total Bilirubin 0.4 Direct Bilirubin 0.00 Indirect Bilirubin 0.4 Aspartate Amino 28 Transf (AST/SGOT) Alanine 17 Aminotransferase (ALT/SG PT) Alkaline Phosphatase 110 Troponin I < 0.012 Total Protein 8.0 Albumin 4.3 Globulin 3.70 H Albumin/Globulin Ratio 1.16 Lipase 102 Urine Color YELLOW Urine Clarity CLOUDY A Urine pH 5.0 Urine Specific [place] 1.025 Urine Ketones NEGATIVE Urine Nitrite NEGATIVE Urine Bilirubin NEGATIVE Urine Urobilinogen NEGATIVE Urine Leukocyte Esterase 3+ H Urine Microscopic RBC > 182 H Urine Microscopic WBC 117 H Urine Squamous FEW Epithelial Cells Urine Bacteria FEW A Urine Mucus FEW A Urine Hemoglobin 3+ H Urine Glucose NEGATIVE Urine Total Protein 2+ H POC Venous Lactate 0.7 Lactic Acid Level 0.8 HPI/ROS Admit Date/Time Admit Date/Time February 15, 2019 at 20:59 Hx of Present Illness This is a 73-year-old female with a history of gastroparesis, GERD, hiatal hernia repair, ?SBO, possible repair of mitral valve regurg who presents the ER complaining of abdominal pain, nausea/vomiting and diarrhea. Patient was admitted last week with nausea/vomiting and abdominal pain, which was thought to be from gastroparesis. At that time, she refused Reglan. When she tolerated p.o. intake, she was discharged. Patient underwent EGD to ER in 2013 for a persistent vomiting, findings were benign. Abdominal x-ray in the ER showed nonspecific bowel gas pattern without evidence of obstruction, gaseous distention of the colon in approximately 6 mm stone projecting over the left kidney PMH/Family/Social Past Medical History Medical History: other (See HPI) Medications Current Medications Dextrose/Sodium Chloride 1,000 ml @ 80 mls/hr [id number] IV ; Start 02/15/19 at 23:25 IV Flush (NS 3 ml) 3 ml PER PROTOCOL IV ; Start 02/15/19 at 23:30 Metoclopramide HCl (Reglan) 10 mg Q6H PRN IV NAUSEA/VOMITING; Start 02/15/19 at 23:30 Heparin Sodium (Porcine) (Heparin (5000 Units/1ml)) 5,000 unit Q12 SC ; Start 02/16/19 at 09:00 Albuterol/ Ipratropium (Duoneb) 3 ml Q2H RESP THERAPY PRN HHN SHORTNESS OF BREATH; Start 02/15/19 at 23:30 Ceftriaxone Sodium 50 ml @ 100 mls/hr DAILY IVPB ; Start 02/16/19 at 09:00 Coded Allergies: propofol (Verified Allergy, Intermediate, shaking, delusions, 02/15/19) hydromorphone (Verified Allergy, Unknown, HALLUCINATIONS,RASH,DIFFICULTY BREATHING,GI UPSET, 02/15/19) Past Surgical History Past Surgical Hx: other (See HPI) Family History Significant Family History: no pertinent family hx Social History Alcohol Use: none Smoking Status: Never smoker Drug Use: none Exam/Review of Systems Vital Signs Vitals Vital Signs Date Temp Pulse Resp B/P (MAP) Pulse Ox O2 O2 Flow FiO2 Time Delivery Rate 02/15/19 98.3 81 18 129/75 99 22:00 (93) 02/15/19 Room Air 21:51 Exam Constitutional: alert, oriented Head: normocephalic, atraumatic Eyes: EOMI, PERRL Respiratory: clear to auscultation, normal air movement Cardiovascular: regular rate and rhythm Gastrointestinal: soft, tender Extremities: normal pulses MAXWELL TORRES MD February 15, 2019 23:50
[2019-02-15] MEDS: DEXTROSE 5%-0.45% NACL 1,000 ML IV SCH (23:56)
[2019-02-16 01:18] VITALS: BP 134/71; PULSE 69; RESP 18
[2019-02-16] MEDS: METOCLOPRAMIDE 10 MG INJ IV PRN (04:32)
[2019-02-16 07:18] VITALS: BP 131/63; PULSE 80; RESP 16
[2019-02-16] MEDS: CEFTRIAXONE 1 GM/50 ML (PMX) 50 ML IVPB SCH (09:06)
[2019-02-16] MEDS: HEPARIN 5,000 UNIT/1 ML VIAL SC SCH ×2 (09:11→21:21)
--- NOTE | 2019-02-16 13:47 | CONS ---
DATE OF ADMISSION: 02/15/2019 DATE OF CONSULTATION: TYPE OF CONSULTATION: Urology. HISTORY OF PRESENT ILLNESS: Jayda Funk is a 73-year-old female with history of gastroparesis who was admitted through the emergency room yesterday for nausea and vomiting. The patient states s he has a history of recurrent urinary tract infections. A KUB was obtained which demonstrates a 6 mm calcification over the left renal fossa and thus a urologic consultation has been requested. PAST SURGICAL HISTORY: Hiatal hernia, gastroparesis. ALLERGIES: 1. PROPOFOL. 2. HYDROMORPHONE. 3. CEFTRIAXONE. 4. REGLAN. PHYSICAL EXAMINATION: VITAL SIGNS: Blood pressure 131/63, heart rate 80, respiratory rate 18, temperature 98.4. ABDOMEN: Soft, nondistended, nontender, no palpable masses. FLANK: No CVA tenderness, no masses. LABORATORY DATA: White blood count 6.2, hemoglobin 11.7. Creatinine 0.85. Urinalysis: Positive mi crohematuria. IMPRESSION: 1. A 6 mm radiodensity over the left kidney. 2. Microhematuria. 3. Rule out kidney stone. 4. Recurrent urinary tract infections. PLAN: Check urine culture. CT scan of abdomen and pelvis. No IV. Further intervention evaluation pending clinical course and results of above. Dictated By: CUCO BRANDON MD EGR/NTS Conf#: [id number] DID#: [id number] CC: TACHO SMALLWOOD MD; MAXWELL TORRES MD;*EndCC*
[2019-02-16] MEDS: DEXTROSE 5%-0.45% NACL 1,000 ML IV SCH ×3 (14:00→16:00)
[2019-02-16 14:20] VITALS: BP 135/63; PULSE 67; RESP 17
--- NOTE | 2019-02-16 16:14 | PN ---
Date/Time of Note Date/Time of Note DATE: 02/16/19 TIME: 16:02 Assessment/Plan VTE [place]phylaxis [place] [facility] [place]: 3 [place] [facility] [place] Yes Pharmacological prophylaxis: heparin Lines/Catheters IV Catheter Type (from [facility]): Peripheral IV Urinary Cath still in place: No Assessment/Plan Assessment/Plan 1. UTI, recurrent, on rocephin, send urine c/s 2. Gastroparesis with chronic abdominal pain by history, on reglan 3. Distal left ureteral stone, causing mild hydroureteronephrosis (per CT from 02/06/19) and left nephrolithiasis, CT scan ordered by urology 4. Normocytic anemia, chronic, stable 5. DVT prophylaxis: heparin Result Diagram: 02/16/19 0555 02/16/19 0555 Results 24hrs Laboratory Tests Test 02/15/19 19:50 02/15/19 19:57 02/15/19 21:51 02/15/19 22:34 White Blood Count 6.2 Red Blood Count 4.04 #L Hemoglobin 11.7 #L Hematocrit 36.3 #L Mean Corpuscular Volume 89.9 Mean Corpuscular 29.0 Hemoglobin Mean Corpuscular 32.2 Hemoglobin Concent Red Cell Distribution 13.6 Width Platelet Count 191 Mean Platelet Volume 11.5 H Immature Granulocytes % 0.300 Neutrophils % 68.0 Lymphocytes % 19.7 Monocytes % 7.5 Eosinophils % 3.4 Basophils % 1.1 Nucleated Red Blood 0.0 Cells % Immature Granulocytes # 0.020 Neutrophils # 4.2 Lymphocytes # 1.2 Monocytes # 0.5 Eosinophils # 0.2 Basophils # 0.1 Nucleated Red Blood 0.0 Cells # Sodium Level 143 Potassium Level 3.6 Chloride Level 105 Carbon Dioxide Level 30 Anion Gap 8 Blood Urea Nitrogen 25 H Creatinine 0.85 Est Glomerular Filtrat Rate mL/min Glucose Level 129 Calcium Level 9.4 Total Bilirubin 0.4 Direct Bilirubin 0.00 Indirect Bilirubin 0.4 Aspartate Amino 28 Transf (AST/SGOT) Alanine 17 Aminotransferase (ALT/S GPT) Alkaline Phosphatase 110 Troponin I < 0.012 Total Protein 8.0 Albumin 4.3 Globulin 3.70 H Albumin/Globulin Ratio 1.16 Lipase 102 Urine Color YELLOW Urine Clarity CLOUDY A Urine pH 5.0 Urine Specific [place] 1.025 Urine Ketones NEGATIVE Urine Nitrite NEGATIVE Urine Bilirubin NEGATIVE Urine Urobilinogen NEGATIVE Urine Leukocyte 3+ H Esterase Urine Microscopic RBC > 182 H Urine Microscopic WBC 117 H Urine Squamous FEW Epithelial Cells Urine Bacteria FEW A Urine Mucus FEW A Urine Hemoglobin 3+ H Urine Glucose NEGATIVE Urine Total Protein 2+ H POC Venous Lactate 0.7 Lactic Acid Level 0.8 Test 02/16/19 05:55 White Blood Count 5.1 Red Blood Count 3.58 L Hemoglobin 10.2 L Hematocrit 31.9 L Mean Corpuscular Volume 89.1 Mean Corpuscular 28.5 L Hemoglobin Mean Corpuscular 32.0 Hemoglobin Concent Red Cell Distribution 13.5 Width Platelet Count 173 Mean Platelet Volume 11.1 H Immature Granulocytes % 0.400 Neutrophils % 66.1 Lymphocytes % 18.5 Monocytes % 9.1 Eosinophils % 4.7 Basophils % 1.2 Nucleated Red Blood 0.0 Cells % Immature Granulocytes # 0.020 Neutrophils # 3.4 Lymphocytes # 0.9 Monocytes # 0.5 Eosinophils # 0.2 Basophils # 0.1 Nucleated Red Blood 0.0 Cells # Sodium Level 142 Potassium Level 3.5 Chloride Level 108 Carbon Dioxide Level 29 Anion Gap 5 Blood Urea Nitrogen 20 Creatinine 0.80 Est Glomerular Filtrat Rate mL/min Glucose Level 119 Calcium Level 8.8 Phosphorus Level 3.6 Magnesium Level 1.7 Total Bilirubin 0.4 Direct Bilirubin 0.00 Indirect Bilirubin 0.4 Aspartate Amino 23 Transf (AST/SGOT) Alanine 14 Aminotransferase (ALT/S GPT) Alkaline Phosphatase 76 Total Protein 6.2 # Albumin 3.5 Globulin 2.70 Albumin/Globulin Ratio 1.29 Subjective 24 Hr Interval Summary Free Text/Dictation lower abdominal pain, no nausea or vomiting today Exam/Review of Systems Exam Vitals Vital Signs Date Temp Pulse Resp B/P (MAP) Pulse Ox O2 O2 Flow FiO2 Time Delivery Rate 02/16/19 98.0 67 17 135/63 97 Room Air 14:20 (87) Intake and Output 02/15/19 02/15/19 02/16/19 1515:00 23:00 07:00 IntakeIntake Total 50 ml 480 ml BalanceBalance 50 ml 480 ml Constitutional: alert, oriented, well developed Head: normocephalic, atraumatic Eyes: nl conjunctiva, EOMI, nl lids ENMT: nl external ears & nose, nl lips & teeth, nl nasal mucosa & septum Neck: supple, non-tender Respiratory: clear to auscultation, normal air movement; No congested cough, No crackles/rales, No diminished breath sounds, No intercostal retraction, No labored breathing, No respirations, No tactile fremitus, No wheezing, No other Cardiovascular: regular rate and rhythm, nl pulses; No bruits, No diastolic murmur, No edema, No gallop, No irregular rhythm, No jugular venous distention (JVD), No murmurs/extra sounds, No rub, No systolic murmur, No S3, No S4, No other Gastrointestinal: soft, nl liver, spleen, other (lower abdominal tenderness) Musculoskeletal: nl extremities to inspection Extremities: normal pulses; No calf tenderness, No cyanosis, No clubbing, No edema, No pitting pedal edema, No palpable cord, No tenderness, No other Neurological: BUGGY LADLE TENDER II-XII intact, nl mental status, nl speech, nl strength Results Results 24hrs Laboratory Tests Test 02/15/19 19:50 02/15/19 19:57 02/15/19 21:51 02/15/19 22:34 White Blood Count 6.2 Red Blood Count 4.04 #L Hemoglobin 11.7 #L Hematocrit 36.3 #L Mean Corpuscular Volume 89.9 Mean Corpuscular 29.0 Hemoglobin Mean Corpuscular 32.2 Hemoglobin Concent Red Cell Distribution 13.6 Width Platelet Count 191 Mean Platelet Volume 11.5 H Immature Granulocytes % 0.300 Neutrophils % 68.0 Lymphocytes % 19.7 Monocytes % 7.5 Eosinophils % 3.4 Basophils % 1.1 Nucleated Red Blood 0.0 Cells % Immature Granulocytes # 0.020 Neutrophils # 4.2 Lymphocytes # 1.2 Monocytes # 0.5 Eosinophils # 0.2 Basophils # 0.1 Nucleated Red Blood 0.0 Cells # Sodium Level 143 Potassium Level 3.6 Chloride Level 105 Carbon Dioxide Level 30 Anion Gap 8 Blood Urea Nitrogen 25 H Creatinine 0.85 Est Glomerular Filtrat Rate mL/min Glucose Level 129 Calcium Level 9.4 Total Bilirubin 0.4 Direct Bilirubin 0.00 Indirect Bilirubin 0.4 Aspartate Amino 28 Transf (AST/SGOT) Alanine 17 Aminotransferase (ALT/S GPT) Alkaline Phosphatase 110 Troponin I < 0.012 Total Protein 8.0 Albumin 4.3 Globulin 3.70 H Albumin/Globulin Ratio 1.16 Lipase 102 Urine Color YELLOW Urine Clarity CLOUDY A Urine pH 5.0 Urine Specific [place] 1.025 Urine Ketones NEGATIVE Urine Nitrite NEGATIVE Urine Bilirubin NEGATIVE Urine Urobilinogen NEGATIVE Urine Leukocyte 3+ H Esterase Urine Microscopic RBC > 182 H Urine Microscopic WBC 117 H Urine Squamous FEW Epithelial Cells Urine Bacteria FEW A Urine Mucus FEW A Urine Hemoglobin 3+ H Urine Glucose NEGATIVE Urine Total Protein 2+ H POC Venous Lactate 0.7 Lactic Acid Level 0.8 Test 02/16/19 05:55 White Blood Count 5.1 Red Blood Count 3.58 L Hemoglobin 10.2 L Hematocrit 31.9 L Mean Corpuscular Volume 89.1 Mean Corpuscular 28.5 L Hemoglobin Mean Corpuscular 32.0 Hemoglobin Concent Red Cell Distribution 13.5 Width Platelet Count 173 Mean Platelet Volume 11.1 H Immature Granulocytes % 0.400 Neutrophils % 66.1 Lymphocytes % 18.5 Monocytes % 9.1 Eosinophils % 4.7 Basophils % 1.2 Nucleated Red Blood 0.0 Cells % Immature Granulocytes # 0.020 Neutrophils # 3.4 Lymphocytes # 0.9 Monocytes # 0.5 Eosinophils # 0.2 Basophils # 0.1 Nucleated Red Blood 0.0 Cells # Sodium Level 142 Potassium Level 3.5 Chloride Level 108 Carbon Dioxide Level 29 Anion Gap 5 Blood Urea Nitrogen 20 Creatinine 0.80 Est Glomerular Filtrat Rate mL/min Glucose Level 119 Calcium Level 8.8 Phosphorus Level 3.6 Magnesium Level 1.7 Total Bilirubin 0.4 Direct Bilirubin 0.00 Indirect Bilirubin 0.4 Aspartate Amino 23 Transf (AST/SGOT) Alanine 14 Aminotransferase (ALT/S GPT) Alkaline Phosphatase 76 Total Protein 6.2 # Albumin 3.5 Globulin 2.70 Albumin/Globulin Ratio 1.29 Medications Medication Current Medications Dextrose/Sodium Chloride 1,000 ml @ 80 mls/hr [id number] IV Last administered on 02/16/19at 14:57; Admin Dose 80 MLS/HR; Start 02/15/19 at 23:25 IV Flush (NS 3 ml) 3 ml PER PROTOCOL IV ; Start 02/15/19 at 23:30 Metoclopramide HCl (Reglan) 10 mg Q6H PRN IV NAUSEA/VOMITING Last administered on 02/16/19at 04:32; Admin Dose 10 MG; Start 02/15/19 at 23:30 Heparin Sodium (Porcine) (Heparin (5000 Units/1ml)) 5,000 unit Q12 SC Last administered on 02/16/19at 09:11; Admin Dose 5,000 UNIT; Start 02/16/19 at 09:00 Albuterol/ Ipratropium (Duoneb) 3 ml Q2H RESP THERAPY PRN HHN SHORTNESS OF BREATH; Start 02/15/19 at 23:30 Ceftriaxone Sodium 50 ml @ 100 mls/hr DAILY IVPB Last administered on 02/16/19at 09:06; Admin Dose 100 MLS/HR; Start 02/16/19 at 09:00 TACHO SMALLWOOD MD February 16, 2019 16:13
[2019-02-16 20:10] VITALS: BP 135/62; PULSE 72; RESP 16
[2019-02-17] MEDS: DEXTROSE 5%-0.45% NACL 1,000 ML IV SCH ×4 (00:25→23:51)
[2019-02-17 01:45] VITALS: BP 123/59; PULSE 81; RESP 16
[2019-02-17] MEDS: METOCLOPRAMIDE 10 MG INJ IV PRN (06:45)
[2019-02-17 08:16] VITALS: BP 119/63; PULSE 68; RESP 16
--- NOTE | 2019-02-17 08:31 | CONS ---
DATE OF ADMISSION: 02/15/2019 DATE OF CONSULTATION: The patient had an uneventful evening. She is not having any nausea or vomiting. She is voiding wel l. Overall, the patient feels tired. VITAL SIGNS: Blood pressure 123/54, heart rate 81, respirations 16. Temperature 97.9. ABDOMEN: Soft, nondistended, nontender, no palpable masses. Flank, no CVA tenderness, no masses. LABORATORY DATA: White blood count 5.1, hemoglobin 10.2, creatinine 0.8. IMPRESSION: Urinary tract infection, rule out a 6 mm left renal calculi. PLAN: 1. Await urine culture results. 2. Await results of CT scan of abdomen and pelvis. Dictated By: CUCO BRANDON MD EGR/NTS Conf#: [id number] DID#: [id number] CC: MAXWELL TORRES MD;*EndCC*
[2019-02-17] MEDS: HEPARIN 5,000 UNIT/1 ML VIAL SC SCH ×2 (09:00→21:00)
[2019-02-17] MEDS: CEFTRIAXONE 1 GM/50 ML (PMX) 50 ML IVPB SCH (09:35)
--- NOTE | 2019-02-17 10:24 | PSY ---
Date/Time of Note Date/Time of Note DATE: 02/17/19 TIME: 10:23 Psychiatric Subjective Eval Consent Pt consented to telemedicine: No Subjective Evaluation Patient location: other Chief Complaint: low abd pain chronic issue for past few days. no n/v noted History of present illness Patient is a 73-year-old female with history of gastroparesis who is currently on the medical unit for nausea and vomiting. [id number] evaluation, patient states she is sad and lonely because she has nobody to share her problems with. Patient states she has a daughter who does not care how she feels and does not visit. She however denies suicidal ideation states she would never take her own life and she also states she does not have clinical depression but just worried about her medical condition.. Patient endorses passive suicidal thoughts states she will be happy if she if that comes away but she will never do anything to cause her on . Patient declined antidepressants states she does not have clinical depression. Past psychiatric history Denies Hospitalization: other Medical history Problems Medical Problems: (1) Abdominal pain Status: Acute (2) Back pain Status: Acute (3) Back pain Status: Acute (4) Biliary colic Status: Acute (5) Blurry vision, left eye Status: Acute (6) Cephalgia Status: Acute (7) Contusion of rib on left side Status: Acute (8) Cough Status: Acute (9) Cystitis Status: Acute (10) Eczema Status: Acute (11) Falls Status: Acute (12) Falls Status: Acute (13) Foot pain Status: Acute (14) Gastroparesis Status: Acute (15) Gastroparesis Status: Acute (16) Hiatal hernia Status: Acute (17) Hypertension Status: Acute (18) Intractable vomiting Status: Acute (19) Kidney stone Status: Acute (20) Mild nausea Status: Acute (21) Nausea and vomiting Status: Acute (22) Near syncope Status: Acute (23) Rectal hemorrhage Status: Acute (24) UTI (urinary tract infection) Status: Acute Allergies: Coded Allergies: propofol (Verified Allergy, Intermediate, shaking, delusions, 02/15/19) hydromorphone (Verified Allergy, Unknown, HALLUCINATIONS,RASH,DIFFICULTY BREATHING,GI UPSET, 02/15/19) Substance Abuse Substance abuse history: No Prior substance abuse treatmen: No Social History Marital status: other DPA/Conservatorship: No Psychiatric Objective Eval Review of Systems: Review of Systems: Not Applicable Physical Examination: Physical Examination: Not Applicable Appetite: Decreased Energy: Decreased Interest: Decreased Mental Status Examination: Appearance: Groomed Eye Contact: Fair Psychomotor Activity: Normal Behavior: Cooperative Speech: Clear AFFECT: Flat Mood: Depressed Though Process: Linear Orientation: x4 Cognition: Alert Insight: Intact Judgement: Intact Attention Span: Intact Laboratory Results Laboratory Tests Test 02/15/19 19:50 02/15/19 19:57 02/15/19 21:51 02/15/19 22:34 White Blood Count 6.2 10^3/ul Red Blood Count 4.04 10^6/ul Hemoglobin 11.7 g/dl Hematocrit 36.3 % Mean Corpuscular 89.9 fl Volume Mean Corpuscular 29.0 pg Hemoglobin Mean Corpuscular 32.2 g/dl Hemoglobin Concent Red Cell 13.6 % Distribution Width Platelet Count 191 10^3/UL Mean Platelet 11.5 fl Volume Immature 0.300 % Granulocytes % Neutrophils % 68.0 % Lymphocytes % 19.7 % Monocytes % 7.5 % Eosinophils % 3.4 % Basophils % 1.1 % Nucleated Red Blood 0.0 /100WBC Cells % Immature 0.020 10^3/ul Granulocytes # Neutrophils # 4.2 10^3/ul Lymphocytes # 1.2 10^3/ul Monocytes # 0.5 10^3/ul Eosinophils # 0.2 10^3/ul Basophils # 0.1 10^3/ul Nucleated Red Blood 0.0 10^3/ul Cells # Sodium Level 143 mmol/L Potassium Level 3.6 mmol/L Chloride Level 105 mmol/L Carbon Dioxide 30 mmol/L Level Anion Gap 8 Blood Urea Nitrogen 25 mg/dl Creatinine 0.85 mg/dl Est Glomerular mL/min Filtrat Rate mL/min Glucose Level 129 mg/dl Calcium Level 9.4 mg/dl Total Bilirubin 0.4 mg/dl Direct Bilirubin 0.00 mg/dl Indirect Bilirubin 0.4 mg/dl Aspartate Amino 28 IU/L Transf (AST/SGOT) Alanine 17 IU/L Aminotransferase (A LT/SGPT) Alkaline 110 IU/L Phosphatase Troponin I < 0.012 ng/ml Total Protein 8.0 g/dl Albumin 4.3 g/dl Globulin 3.70 g/dl Albumin/Globulin 1.16 Ratio Lipase 102 U/L Urine Color YELLOW Urine Clarity CLOUDY Urine pH 5.0 Urine Specific 1.025 [place] Urine Ketones NEGATIVE mg/dL Urine Nitrite NEGATIVE mg/dL Urine Bilirubin NEGATIVE mg/dL Urine Urobilinogen NEGATIVE mg/dL Urine Leukocyte 3+ Ab/ul Esterase Urine Microscopic > 182 /HPF RBC Urine Microscopic 117 /HPF WBC Urine Squamous FEW /HPF Epithelial Cells Urine Bacteria FEW /HPF Urine Mucus FEW /HPF Urine Hemoglobin 3+ mg/dL Urine Glucose NEGATIVE mg/dL Urine Total Protein 2+ mg/dl POC Venous Lactate 0.7 mmol/L Lactic Acid Level 0.8 mmol/L Test 02/16/19 05:55 02/17/19 06:49 White Blood Count 5.1 10^3/ul 4.8 10^3/ul Red Blood Count 3.58 10^6/ul 3.28 10^6/ul Hemoglobin 10.2 g/dl 9.3 g/dl Hematocrit 31.9 % 29.1 % Mean Corpuscular 89.1 fl 88.7 fl Volume Mean Corpuscular 28.5 pg 28.4 pg Hemoglobin Mean Corpuscular 32.0 g/dl 32.0 g/dl Hemoglobin Concent Red Cell 13.5 % 13.4 % Distribution Width Platelet Count 173 10^3/UL 173 10^3/UL Mean Platelet 11.1 fl 11.6 fl Volume Immature 0.400 % 0.200 % Granulocytes % Neutrophils % 66.1 % 63.9 % Lymphocytes % 18.5 % 21.0 % Monocytes % 9.1 % 8.6 % Eosinophils % 4.7 % 4.8 % Basophils % 1.2 % 1.5 % Nucleated Red Blood 0.0 /100WBC 0.0 /100WBC Cells % Immature 0.020 10^3/ul 0.010 10^3/ul Granulocytes # Neutrophils # 3.4 10^3/ul 3.0 10^3/ul Lymphocytes # 0.9 10^3/ul 1.0 10^3/ul Monocytes # 0.5 10^3/ul 0.4 10^3/ul Eosinophils # 0.2 10^3/ul 0.2 10^3/ul Basophils # 0.1 10^3/ul 0.1 10^3/ul Nucleated Red Blood 0.0 10^3/ul 0.0 10^3/ul Cells # Sodium Level 142 mmol/L 143 mmol/L Potassium Level 3.5 mmol/L 3.5 mmol/L Chloride Level 108 mmol/L 110 mmol/L Carbon Dioxide 29 mmol/L 26 mmol/L Level Anion Gap 5 7 Blood Urea Nitrogen 20 mg/dl 21 mg/dl Creatinine 0.80 mg/dl 0.94 mg/dl Est Glomerular mL/min mL/min Filtrat Rate mL/min Glucose Level 119 mg/dl 100 mg/dl Calcium Level 8.8 mg/dl 8.6 mg/dl Phosphorus Level 3.6 mg/dl Magnesium Level 1.7 mg/dl Total Bilirubin 0.4 mg/dl Direct Bilirubin 0.00 mg/dl Indirect Bilirubin 0.4 mg/dl Aspartate Amino 23 IU/L Transf (AST/SGOT) Alanine 14 IU/L Aminotransferase (A LT/SGPT) Alkaline 76 IU/L Phosphatase Total Protein 6.2 g/dl Albumin 3.5 g/dl Globulin 2.70 g/dl Albumin/Globulin 1.29 Ratio Assessment and Plan Assessment/Diagnosis Diagnosis 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
--- NOTE | 2019-02-17 12:27 | PN ---
Date/Time of Note Date/Time of Note DATE: 02/17/19 TIME: 12:22 Assessment/Plan VTE Prophylaxis Risk score (from Ns)>0 risk: 3 SCD applied (from Ns): No SCD contraindicated: other Pharmacological prophylaxis: heparin Lines/Catheters IV C[facility]ter Type ([facility] Peripheral IV Urinary Cath still in place: No Assessment/Plan Hospital Course S: Patient complaining of some nausea symptoms, but tolerating small portions of diet. CT scan abdomen pelvis was performed this morning, results noted. Seen by urology team yesterday and psychiatry team today. O: VS- see below PE: Constitutional: alert, oriented, well developed Head: normocephalic, atraumatic Eyes: nl conjunctiva, EOMI, nl lids ENMT: nl external ears & nose, nl lips & teeth, nl nasal mucosa & septum Neck: supple, non-tender Respiratory: clear to auscultation, normal air movement; No congested cough, No crackles/rales, No diminished breath sounds, No intercostal retraction, No labored breathing, No respirations, No tactile fremitus, No wheezing, No other Cardiovascular: regular rate and rhythm, nl pulses; No bruits, No diastolic murmur, No edema, No gallop, No irregular rhythm, No jugular venous distention (JVD), No murmurs/extra sounds, No rub, No systolic murmur, No S3, No S4, No other Gastrointestinal: soft, nl liver, spleen, other (lower abdominal tenderness) Musculoskeletal: nl extremities to inspection Extremities: normal pulses; No calf tenderness, No cyanosis, No clubbing, No edema, No pitting pedal edema, No palpable cord, No tenderness, No other Neurological: WEAVING INSPECTOR II-XII intact, nl mental status, nl speech, nl strength CT scan abdomen pelvis February 17, 2019: IMPRESSION: 1. Interval decreased left-sided hydroureternephrosis. No obstructing distal left ureteral calculi are seen. If clinically warranted consider further evaluation with CT urogram. 2. Multiple nonobstructing bilateral renal calculi. 3. Diverticulosis without diverticulitis. 4. Small pericardial effusion versus pericardial thickening. 5. Status post cholecystectomy and hysterectomy. 6. Severe disc height loss T12-L1 through L4-5. Assessment/Plan: 73-year female presents with: 1. UTI- recurrent, on rocephin. Urine culture positive for E. coli, or swelling well to antibiotics -Continue current antibiotics, follow-up final results of urine c/s 2. Gastroparesis with chronic abdominal pain by history- on reglan. Patient says she has taken erythromycin in the past. Also complaining of some bloating symptoms -We will start low-dose erythromycin, continue Reglan. -Increase the dose of simethicone for the bloating symptoms -Colace for constipation 3. Distal left ureteral stone, causing mild hydroureteronephrosis (per CT from 02/06/19) and left nephrolithiasis- CT scan again as listed above, shows improving left-sided hydronephrosis. Stone cannot be found now, it is possible patient may have passed a stone since that time. -Monitor for now 4. Normocytic anemia, chronic, stable -Monitor 5. DVT prophylaxis: heparin 6. Depression: Appreciate psychiatry consult -Monitor for now, no medications indicated at this time Dispo: Likely home in 24 hours if her nausea vomiting and bloating symptoms improve. Result Diagram: 02/17/19 0649 02/17/19 0649 Results 24hrs Laboratory Tests Test 02/17/19 06:49 White Blood Count 4.8 Red Blood Count 3.28 L Hemoglobin 9.3 L Hematocrit 29.1 L Mean Corpuscular Volume 88.7 Mean Corpuscular Hemoglobin 28.4 L Mean Corpuscular Hemoglobin Concent 32.0 Red Cell Distribution Width 13.4 Platelet Count 173 Mean Platelet Volume 11.6 H Immature Granulocytes % 0.200 Neutrophils % 63.9 Lymphocytes % 21.0 Monocytes % 8.6 Eosinophils % 4.8 Basophils % 1.5 Nucleated Red Blood Cells % 0.0 Immature Granulocytes # 0.010 Neutrophils # 3.0 Lymphocytes # 1.0 Monocytes # 0.4 Eosinophils # 0.2 Basophils # 0.1 Nucleated Red Blood Cells # 0.0 Sodium Level 143 Potassium Level 3.5 Chloride Level 110 Carbon Dioxide Level 26 Anion Gap 7 Blood Urea Nitrogen 21 H Creatinine 0.94 Est Glomerular Filtrat Rate mL/min Glucose Level 100 Calcium Level 8.6 Exam/Review of Systems Exam Vitals Vital Signs Date Temp Pulse Resp B/P (MAP) Pulse Ox O2 O2 Flow FiO2 Time Delivery Rate 02/17/19 98.2 68 16 119/63 96 08:16 (81) 02/16/19 Room Air 14:20 Intake and Output 02/16/19 02/16/19 02/17/19 1515:00 23:00 07:00 IntakeIntake Total 50 ml 240 ml 885 ml BalanceBalance 50 ml 240 ml 885 ml Results Results 24hrs Laboratory Tests Test 02/17/19 06:49 White Blood Count 4.8 Red Blood Count 3.28 L Hemoglobin 9.3 L Hematocrit 29.1 L Mean Corpuscular Volume 88.7 Mean Corpuscular Hemoglobin 28.4 L Mean Corpuscular Hemoglobin Concent 32.0 Red Cell Distribution Width 13.4 Platelet Count 173 Mean Platelet Volume 11.6 H Immature Granulocytes % 0.200 Neutrophils % 63.9 Lymphocytes % 21.0 Monocytes % 8.6 Eosinophils % 4.8 Basophils % 1.5 Nucleated Red Blood Cells % 0.0 Immature Granulocytes # 0.010 Neutrophils # 3.0 Lymphocytes # 1.0 Monocytes # 0.4 Eosinophils # 0.2 Basophils # 0.1 Nucleated Red Blood Cells # 0.0 Sodium Level 143 Potassium Level 3.5 Chloride Level 110 Carbon Dioxide Level 26 Anion Gap 7 Blood Urea Nitrogen 21 H Creatinine 0.94 Est Glomerular Filtrat Rate mL/min Glucose Level 100 Calcium Level 8.6 Medications Medication Current Medications Dextrose/Sodium Chloride 1,000 ml @ 80 mls/hr [id number] IV Last administered on 02/17/19at 09:29; Admin Dose 80 MLS/HR; Start 02/15/19 at 23:25 IV Flush (NS 3 ml) 3 ml PER PROTOCOL IV ; Start 02/15/19 at 23:30 Metoclopramide HCl (Reglan) 10 mg Q6H PRN IV NAUSEA/VOMITING Last administered on 02/17/19at 06:45; Admin Dose 10 MG; Start 02/15/19 at 23:30 Heparin Sodium (Porcine) (Heparin (5000 Units/1ml)) 5,000 unit Q12 SC Last administered on 02/16/19at 21:21; Admin Dose 5,000 UNIT; Start 02/16/19 at 09:00 Albuterol/ Ipratropium (Duoneb) 3 ml Q2H RESP THERAPY PRN HHN SHORTNESS OF BREATH; Start 02/15/19 at 23:30 Ceftriaxone Sodium 50 ml @ 100 mls/hr DAILY IVPB Last administered on 02/17/19at 09:35; Admin Dose 100 MLS/HR; Start 02/16/19 at 09:00 Simethicone (Mylicon) 120 mg Q6 PRN PO Gas; Start 02/17/19 at 12:30; Status UNV Erythromycin (Erythromycin) 250 mg BID PO ; Start 02/17/19 at 12:30; Status UNV Docusate Sodium (Colace) 200 mg BID PO ; Start 02/17/19 at 12:30; Status UNV MO MARIE February 17, 2019 12:27
[2019-02-17] MEDS: DOCUSATE SODIUM 100 MG CAP PO SCH ×2 (13:21→21:23)
[2019-02-17] MEDS: ERYTHROMYCIN BASE (DR) 250 MG CAP PO SCH ×2 (13:43→21:23)
[2019-02-17 14:04] VITALS: BP 135/60; PULSE 74; RESP 18
[2019-02-17 19:43] VITALS: BP 130/62; PULSE 78; RESP 18
[2019-02-18 02:00] VITALS: BP 124/77; PULSE 66; RESP 18
[2019-02-18 07:48] VITALS: BP 159/73; PULSE 70; RESP 18
[2019-02-18 08:04] VITALS: BP 144/65; PULSE 62; RESP 18
--- NOTE | 2019-02-18 08:34 | PDOCDIS ---
Discharge Instructions CONDITION [id number] Patient Condition: [id number] Stable HOME CARE INSTRUCTIONS: [id number] Diet Instructions: [id number] Low Fat /Cholesterol (Take small portions with your meals) ACTIVITY: [id number] Activity Restrictions: [id number] Slowly Increase Activity Rest between Activity Avoid heavy lifting FOLLOW UP/APPOINTMENTS Follow-up Plan See your doctor in the clinic in 1 wee. Take your medications as prescribed. MO MARIE February 18, 2019 08:34
[2019-02-18] MEDS ORDERED: ONDA4TAB13 PO (08:43)
[2019-02-18] MEDS ORDERED: DOCU-144 PO (08:43)
[2019-02-18] MEDS ORDERED: ERYT250C52 PO (08:43)
[2019-02-18] MEDS ORDERED: LEVO750T8 PO (08:43)
[2019-02-18] MEDS ORDERED: SIME80TA60 PO (08:43)
[2019-02-18] MEDS: CEFTRIAXONE 1 GM/50 ML (PMX) 50 ML IVPB SCH (08:49)
[2019-02-18] MEDS: DOCUSATE SODIUM 100 MG CAP PO SCH (08:49)
[2019-02-18] MEDS: HEPARIN 5,000 UNIT/1 ML VIAL SC SCH (08:49)
[2019-02-18] MEDS: ERYTHROMYCIN BASE (DR) 250 MG CAP PO SCH (08:49)
--- NOTE | 2019-02-18 08:51 | DS ---
Date/Time of Note Date/Time of Note DATE: 02/18/19 TIME: 08:44 Discharge Summary Admission/Discharge Info Admit Date/Time February 15, 2019 at 20:59 Discharge Date/Time Discharge Diagnosis 1. UTI- improved, recurrent - Urine culture positive for E. coli 2. Gastroparesis with chronic abdominal pain by history- on reglan. 3. Distal left ureteral stone, causing mild hydroureteronephrosis (per CT from 02/06/19) and left nephrolithiasis- CT scan again as listed above, shows improving left-sided hydronephrosis. Stone cannot be found now, it is possible patient may have passed a stone since that time. 4. Normocytic anemia, chronic, stable 5. Depression: Appreciate psychiatry consult -Monitor for now, no medications indicated at this time 6. GERD 7. hiatal herina repair Patient Condition: Stable Procedures CT scan abdomen pelvis February 17, 2019: IMPRESSION: 1. Interval decreased left-sided hydroureternephrosis. No obstructing distal left ureteral calculi are seen. If clinically warranted consider further evaluation with CT urogram. 2. Multiple nonobstructing bilateral renal calculi. 3. Diverticulosis without diverticulitis. 4. Small pericardial effusion versus pericardial thickening. 5. Status post cholecystectomy and hysterectomy. 6. Severe disc height loss T12-L1 through L4-5. Hx of Present Illness 73-year-old female with a history of gastroparesis, GERD, hiatal hernia repair, ?SBO, possible repair of mitral valve regurg who presents the ER complaining of abdominal pain, nausea/vomiting and diarrhea. Patient was admitted last week with nausea/vomiting and abdominal pain, which was thought to be from gastroparesis. At that time, she refused Reglan. When she tolerated p.o. intake, she was discharged. Patient underwent EGD to ER in 2013 for a persistent vomiting, findings were benign. Abdominal x-ray in the ER showed nonspecific bowel gas pattern without evidence of obstruction, gaseous distention of the colon in approximately 6 mm stone projecting over the left kidney Hospital Course Pt was admitted and started on antibiotics. Ucx = + E coli. Pt also found with left sided left distal ureteral stone, causing mild hydroureteronephrosis. Pt appeared to eventually pass the stone. She was able to ambulate, tolerate diet. VS stable. Started on simethicone for some bloating and erythromycin for gastroparesis. Smpts improved- encouraged to eat small portions of her meals. Seen by urology team as well. B/c she is clinically improved today she will be d ischarged home in improved condition. See below for d/c home med list. Home Meds Active Scripts Levofloxacin* (Levofloxacin*) 750 Mg Tablet, 750 MG PO DAILY for UTI for 5 Days, TAB Prov:MO MARIE. 02/18/19 Erythromycin* (Erythromycin* EC) 250 Mg Capsule., 250 MG PO BID for gastroparesis, #60 2 Refills Prov:MO MARIE. 02/18/19 Follow-up Plan See your doctor in the clinic in 1 wee. Take your medications as prescribed. Primary Care Provider Not On Staff Doctor Time spent on discharge: > 30 minutes MO MARIE February 18, 2019 08:51
--- NOTE | 2019-02-18 12:05 | CONS ---
DATE OF ADMISSION: 02/15/2019 DATE OF CONSULTATION: HISTORY OF PRESENT ILLNESS: The patient had an uneventful evening from a urologic standpoint. The p atient remains with marked generalized abdominal pain, bloating, nausea and no appetite. Patient is urinating well. CT scan of abdomen and pelvis demonstrate a 3 cm left renal cyst, multiple stones in the right kidney measuring up to 5 mm, all of which are nonobstructing and two nonobstructing left r enal stones measuring up to 10 mm. There is left hydronephrosis without any stones within the ureter . PHYSICAL EXAMINATION VITAL SIGNS: Blood pressure 144/65, heart rate 62, respiratory rate 18, temperature 98.6. ABDOMEN: Soft, nondistended, generalized tenderness, pinpoint tenderness is noted over the periumbil ical region. EXTREMITIES: No CVA tenderness. LABORATORY DATA: White blood count 4.8, hemoglobin 9.3, creatinine 0.9. IMPRESSION: Bilateral nonobstructing stones, gastroparesis. PLAN: Suggest metabolic evaluation to further delineate why patient is creating bilateral nonobstruc ting stones. Elective intervention of her nonobstructing kidney stones were additionally discussed. At the current time, she is having a marked amount of difficulty with her gastroparesis and would li ke to first treat her underlying GI pathology. Dr. Cantrell to follow up in the morning time. Further intervention evaluation pending clinical course and results of above. Please reconsult as needed. Dictated By: CUCO BRANDON MD EGR/NTS Conf#: [id number] DID#: [id number] CC: TIKI CANTRELL MD;*EndCC*
[2019-02-18 13:12] VITALS: BP 141/67; PULSE 70; RESP 18
[2019-02-18] MEDS: DEXTROSE 5%-0.45% NACL 1,000 ML IV SCH (13:55)
== END 2019-02-18 16:50 | disposition hospice, home (50) ==
LOC: E/R 13:32 → 2NE 20:59 → CANRESERV 21:17
PROVIDERS: ADMIT Internal Medicine; ATTEND Hospitalist
DX: N39.0 Urinary tract infection, site not specified (principal); K31.84 Gastroparesis; N13.2 Hydronephrosis with renal and ureteral calculous obstruction; D64.9 Anemia, unspecified; F32.9 Major depressive disorder, single episode, unspecified; K21.9 Gastro-esophageal reflux disease without esophagitis
CPT/HCPCS: 36415; 74019; 74176; 80048; 80053; 81001; 83605; 83690; 83735; 84100; 84484; 85025; 87040; 87081; 87086; 93005; 96374; 99285; G0378; J0696; J1200; J1644; J2405; J2765; J7030; J7042

== ENCOUNTER 2019-04-06 14:33 | Observation (INO) | payer MEDICARE, OTHER ==
[~2019-04-06] VITALS: Ht 147.3 cm; Wt 47.5 kg
[~2019-04-06 14:33] MED LIST changes: -ACET325T33 PO; +DOCU-144 PO; +ERYT250C52 PO; -IBUP-1542 PO; +LEVO750T8 PO; -NITR-58 PO; +ONDA4TAB13 PO; -PRED20TA PO; +SIME80TA60 PO; -TRIA15OI9 TOP
--- NOTE | 2019-04-06 16:18 | ERD ---
ER Documentation Chief Complaint Chief Complaint Pt reports general weakness all day, hx gastroparesis HPI 73-year-old woman complaining of generalized weakness and dizziness x2 days, she is having trouble walking because of the weakness and has nausea. Patient has a history of recurrent urinary tract infections and gastroparesis. Patient denies blood per rectum or melena, no vomiting, no chest pain or shortness of breath, no loss of consciousness. ROS All systems reviewed and are negative except as per history of present illness. Medications Home Meds Active Scripts Simethicone* (Mylicon*) 80 Mg Tab, 120 MG PO Q6 PRN for Gas, #60 TAB 1 Refill Prov:MO MARIE S. 02/18/19 Docusate Sodium* (Colace*) 100 Mg Capsule, 200 MG PO BID PRN for CONSTIPATION, #30 CAP 1 Refill Prov:MO MARIE S. 02/18/19 Erythromycin* (Erythromycin* EC) 250 Mg Capsule.dr, 250 MG PO BID for gastroparesis, #60 2 Refills Prov:MO MARIE S. 02/18/19 Reported Medications Lorazepam* (Lorazepam*) 0.5 Mg Tablet, 0.5 MG PO Q4H PRN for ANXIETY, TAB 04/06/19 Discontinued Scripts Levofloxacin* (Levofloxacin*) 750 Mg Tablet, 750 MG PO DAILY for UTI for 5 Days, TAB Prov:MO MARIE S. 02/18/19 Ondansetron Hcl* (Zofran*) 4 Mg Tab, 4 MG PO Q6H PRN for NAUSEA AND OR VOMITING, #20 TAB Prov:MO MARIE S. 02/18/19 Allergies Allergies: Coded Allergies: propofol (Verified Allergy, Intermediate, shaking, delusions, 04/06/19) hydromorphone (Verified Allergy, Unknown, HALLUCINATIONS,RASH,DIFFICULTY BREATHING,GI UPSET, 04/06/19) PMhx/Soc 3 cm left renal cyst, multiple stones in the right kidney measuring up to 5 mm, all of which are nonobstructing and two nonobstructing left renal stones measuring up to 10 mm. Chronic gastroparesis, chronic recurrent abdominal pain, anemia, depression, status post cholecystectomy and hysterectomy History of Surgery: Yes (2 HEART VALVE REPAIR, ABDOMINAL SX(2018), HIATAL HERNIA REPAIR, C4 TO C5 SP) Anesthesia Reaction: No Hx Neurological Disorder: No Hx Respiratory Disorders: No Hx Cardiac Disorders: No Hx Psychiatric Problems: Yes (ANXIETY) Hx Miscellaneous Medical Probl: No Hx Alcohol Use: No Hx Substance Use: No Hx Tobacco Use: No Smoking Status: Never smoker Physical Exam Vitals Vital Signs Date Temp Pulse Resp B/P (MAP) Pulse Ox O2 O2 Flow FiO2 Time Delivery Rate 04/06/19 98.3 85 16 142/82 100 Room Air 16:39 (102) 04/06/19 98.3 67 16 151/76 100 Room Air 15:52 (101) 04/06/19 98.3 68 16 110/68 100 14:35 (82) Physical Exam Const: No acute distress, appears dehydrated, afebrile HEENT: Appears dehydrated, pink conjunctive a, no cervical spine deformity Resp: Clear to auscultation bilaterally Cardio: Regular rate and rhythm, no murmurs Abd: Soft, non tender, non distended. No guarding or rigidity Skin: No petechiae or rashes, no lacerations Neur: Awake and alert x3, no focal deficits or facial asymmetry, pupils equal round reactive to light Psych: Normal Mood and Affect Result Diagram: 04/06/19 1715 04/06/19 1715 Results 24 hrs Laboratory Tests Test 04/06/19 16:35 04/06/19 17:15 Urine Color YELLOW Urine Clarity CLOUDY Urine pH 5.0 Urine Specific [place] 1.021 Urine Ketones NEGATIVE mg/dL Urine Nitrite NEGATIVE mg/dL Urine Bilirubin NEGATIVE mg/dL Urine Urobilinogen NEGATIVE mg/dL Urine Leukocyte Esterase 2+ Ab/ul Urine Microscopic RBC > 182 /HPF Urine Microscopic WBC 36 /HPF Urine Mucus FEW /HPF Urine Hemoglobin 3+ mg/dL Urine Glucose 1+ mg/dL Urine Total Protein 1+ mg/dl White Blood Count 6.5 10^3/ul Red Blood Count 3.88 10^6/ul Hemoglobin 10.8 g/dl Hematocrit 33.4 % Mean Corpuscular Volume 86.1 fl Mean Corpuscular Hemoglobin 27.8 pg Mean Corpuscular Hemoglobin Concent 32.3 g/dl Red Cell Distribution Width 13.8 % Platelet Count 225 10^3/UL Mean Platelet Volume 10.2 fl Immature Granulocytes % 0.300 % Neutrophils % 80.3 % Lymphocytes % 11.5 % Monocytes % 5.7 % Eosinophils % 1.4 % Basophils % 0.8 % Nucleated Red Blood Cells % 0.0 /100WBC Immature Granulocytes # 0.020 10^3/ul Neutrophils # 5.2 10^3/ul Lymphocytes # 0.8 10^3/ul Monocytes # 0.4 10^3/ul Eosinophils # 0.1 10^3/ul Basophils # 0.1 10^3/ul Nucleated Red Blood Cells # 0.0 10^3/ul Sodium Level 142 mmol/L Potassium Level 4.1 mmol/L Chloride Level 109 mmol/L Carbon Dioxide Level 26 mmol/L Anion Gap 7 Blood Urea Nitrogen 33 mg/dl Creatinine 1.11 mg/dl Est Glomerular Filtrat Rate mL/min mL/min Glucose Level 114 mg/dl Calcium Level 8.8 mg/dl Total Bilirubin 0.3 mg/dl Direct Bilirubin 0.00 mg/dl Indirect Bilirubin 0.3 mg/dl Aspartate Amino Transf (AST/SGOT) 21 IU/L Alanine Aminotransferase (ALT/SGPT) 17 IU/L Alkaline Phosphatase 78 IU/L Troponin I < 0.012 ng/ml Total Protein 7.4 g/dl Albumin 3.9 g/dl Globulin 3.50 g/dl Albumin/Globulin Ratio 1.11 Lipase 207 U/L Current Medications Medications Dose Sig/Andres Start Time Status Last (Trade) Ordered Route PRN Stop Time Admin Dose Reason Admin Sodium 1,000 ml @ Q1H STAT 04/06/19 DC 04/06/19 Chloride 1,000 mls/hr IV 16:24 16:34 04/06/19 17:23 Ondansetron 4 mg ONCE STAT 04/06/19 DC 04/06/19 HCl (Zofran IV 16:24 16:34 Inj) 04/06/19 16:26 Procedures/MDM IV line was established patient was placed on hall monitor rhythm strip revealed a sinus rhythm at about 60 bpm with upright P and T waves. Patient was afebrile EKG performed, read by me revealed a normal sinus rhythm at 62 bpm, normal axis, narrow QRS complex, no concerning ST elevations or depressions noted CBC was unremarkable, electrolytes revealed dehydration with a BUN/creatinine of 33/1.1, liver function tests were normal, troponin negative, urinalysis positive for infection. I administered 1 L normal saline IV for dehydration, Zofran 4 mg IV for dizziness, ceftriaxone 1 g IV for UTI Patient admitted to [facility] for continued hydration and management. Departure Diagnosis: Primary Impression: Acute weakness Additional Impressions: Cystitis Acute dehydration Condition: LEONIDAS Britton MD Apr 06, 2019 16:18
[2019-04-06] MEDS ORDERED: SOD CHLORIDE 0.9% 1,000 ML IV STA (16:24)
[2019-04-06] MEDS ORDERED: ONDANSETRON 4 MG INJ IV STA (16:24)
[2019-04-06] MEDS ORDERED: LORA0.5T PO (17:12)
[2019-04-06] MEDS ORDERED: CEFTRIAXONE 1 GM/50 ML (PMX) 50 ML IVPB ONE (17:30)
[2019-04-06 18:20] VITALS: BP 134/64; PULSE 71; RESP 16
[2019-04-06] MEDS ORDERED: DOCUSATE SODIUM 100 MG CAP PO PRN (18:30)
[2019-04-06] MEDS ORDERED: NACL 0.9% 3 ML SYG IV SCH (18:30)
[2019-04-06] MEDS ORDERED: ACETAMINOPHEN 325 MG TAB PO PRN (18:30)
[2019-04-06] MEDS ORDERED: LORAZEPAM 0.5 MG TAB PO PRN (18:30)
[2019-04-06] MEDS ORDERED: ONDANSETRON 4 MG INJ IV PRN (18:30)
--- NOTE | 2019-04-06 18:47 | HP ---
Date/Time of Note Date/Time of Note DATE: 04/06/19 TIME: 18:30 Assessment/Plan VTE Prophylaxis SCD applied (from Nsg): Yes Pharmacological prophylaxis: LMWH Lines/Catheters IV Catheter Type (from Nrsg): [place] Lock Assessment/Plan Assessment/Plan 1. Acute UTI - will check Urine cultures. Patient has a history of ESBL noted on UCx from 2014. Will start on Invanz - Will consult Infectious disease for recommendations - continue IVF - denies any dysuria and vitals remain stable 2. Gastroparesis - will continue on Reglan IV - monitor BMs 3. Anxiety/depression - continue home Ativan dose 4. Chronic abdominal pain - continue Tylenol PRN for discomfort per patients request 5. STEF - most likely secondary to UTI and dehydration 6. Acute dehydration - continue IVF 7. Diet - low residual 8. Disposition - Admit to med/surg for treatment of acute UTI with suspicion for ESBL. Result Diagram: 04/06/19 1715 04/06/19 1715 Results 24hrs Laboratory Tests Test 04/06/19 16:35 04/06/19 17:15 Urine Color YELLOW Urine Clarity CLOUDY A Urine pH 5.0 Urine Specific [place] 1.021 Urine Ketones NEGATIVE Urine Nitrite NEGATIVE Urine Bilirubin NEGATIVE Urine Urobilinogen NEGATIVE Urine Leukocyte Esterase 2+ H Urine Microscopic RBC > 182 H Urine Microscopic WBC 36 H Urine Mucus FEW A Urine Hemoglobin 3+ H Urine Glucose 1+ H Urine Total Protein 1+ H White Blood Count 6.5 # Red Blood Count 3.88 L Hemoglobin 10.8 L Hematocrit 33.4 L Mean Corpuscular Volume 86.1 Mean Corpuscular Hemoglobin 27.8 L Mean Corpuscular Hemoglobin Concent 32.3 Red Cell Distribution Width 13.8 Platelet Count 225 # Mean Platelet Volume 10.2 Immature Granulocytes % 0.300 Neutrophils % 80.3 H Lymphocytes % 11.5 L Monocytes % 5.7 Eosinophils % 1.4 Basophils % 0.8 Nucleated Red Blood Cells % 0.0 Immature Granulocytes # 0.020 Neutrophils # 5.2 Lymphocytes # 0.8 Monocytes # 0.4 Eosinophils # 0.1 Basophils # 0.1 Nucleated Red Blood Cells # 0.0 Sodium Level 142 Potassium Level 4.1 Chloride Level 109 Carbon Dioxide Level 26 Anion Gap 7 Blood Urea Nitrogen 33 H Creatinine 1.11 H Est Glomerular Filtrat Rate mL/min Glucose Level 114 Calcium Level 8.8 Total Bilirubin 0.3 Direct Bilirubin 0.00 Indirect Bilirubin 0.3 Aspartate Amino Transf (AST/SGOT) 21 Alanine Aminotransferase (ALT/SGPT) 17 Alkaline Phosphatase 78 Troponin I < 0.012 Total Protein 7.4 Albumin 3.9 Globulin 3.50 H Albumin/Globulin Ratio 1.11 Lipase 207 HPI/ROS Admit Date/Time Admit Date/Time Apr 06, 2019 at 17:23 Hx of Present Illness 73 yo F with PMH Gastroparesis, nephrolithiasis, recurrent UTIs, and chronic abdominal pain presented to the ED for worsening weakness and dehydration. Patient was discharged from [facility] on 02/18/19 for treatment of UTI and nephrolithiasis and was discharged home. She states since discharge she feels as if she has been slowly declining. She has been trying to hydrate with Gatorade but urinary more frequently and feels as if she is not retaining her hydration. Patient also states she was able to ambulate prior to discharge but has been having more difficulty with ambulating due to fatigue. She does admit to severe chills and not feeling well 1 week ago but did not come into the hospital until today due to nausea. Patient states shes been under hospice care but unsure why. She does not feel as if she is going to in 6 months, which is what hospice physician told her but does not feel like her health is doing well. Patient denies any chest pain, shortness of breath, urinary complicatio ns, headache, diarrhea, or focal weakness. She does admit to chronic abdominal pain that she associates with her gastroparesis. ROS All 12 systems reviewed and pertinent positives as per HPI. All others negative. Constitutional: fatigue, nausea Eyes: No discharge ENT: No congestion Respiratory: No pain, No shortness of breath, No sputum, No wheezing Cardiovascular: No chest pain, No lightheadedness, No palpitations Gastrointestinal: pain (chronic), decreased appetite, nausea; No constipation, No diarrhea, No vomiting Genitourinary: No dysuria, No flank pain Musculoskeletal: other Skin: No laceration, No rash Neurologic: No confusion, No focal-weakness, No headache, No syncope Endocrine: no complaints Lymphatic: no complaints Psychological: nl mood/affect Immunologic: no complaints PMH/Family/Social Past Medical History Medical History: other (gastroparesis, anemia, depression, anxiety, recurrent UTI) Medications Current Medications Docusate Sodium (Colace) 200 mg BID PRN PO CONSTIPATION; Start 04/06/19 at 18:30; Status UNV Lorazepam (Ativan) 0.5 mg Q4H PRN PO ANXIETY; Start 04/06/19 at 18:30; Status UNV Simethicone (Mylicon) 120 mg Q6 PRN PO Gas; Start 04/06/19 at 18:30; Status UNV Metoclopramide HCl (Reglan) 10 mg Q6 IV ; Start 04/06/19 at 18:30; Status UNV Sodium Chloride 1,000 ml @ 100 mls/hr Q10H IV ; Start 04/06/19 at 18:20; S tatus UNV IV Flush (NS 3 ml) 3 ml PER PROTOCOL IV ; Start 04/06/19 at 18:30; Status UNV Ondansetron HCl (Zofran Inj) 4 mg Q6H PRN IV NAUSEA/VOMITING; Start 04/06/19 at 18:30; Status UNV Acetaminophen (Tylenol Tab) 650 mg Q6H PRN PO .PAIN 1-3 OR TEMP; Start 04/06/19 at 18:30; Status UNV Pantoprazole (Protonix Tab) 40 mg DAILY@06 PO ; Start 04/07/19 at 06:00; Status UNV Enoxaparin Sodium (Lovenox) 40 mg DAILY SC ; Start 04/07/19 at 09:00; Status UNV Cefepime HCl 50 ml @ 100 mls/hr Q12 IV ; Start 04/06/19 at 21:00; Status UNV Coded Allergies: propofol (Verified Allergy, Intermediate, shaking, delusions, 04/06/19) hydromorphone (Verified Allergy, Unknown, HALLUCINATIONS,RASH,DIFFICULTY BREATHING,GI UPSET, 04/06/19) Past Surgical History Past Surgical Hx: other Family History Significant Family History: no pertinent family hx Social History Alcohol Use: none Smoking Status: Never smoker Drug Use: none Exam/Review of Systems Vital Signs Vitals Vital Signs Date Temp Pulse Resp B/P (MAP) Pulse Ox O2 O2 Flow FiO2 Time Delivery Rate 04/06/19 98.3 80 16 122/58 100 Room Air 17:29 (79) Exam Exam General: Patient is a pleasant female, very anxious, no acute distress, pale complexion HEENT: Atraumatic, normocephalic. The pupils are equal, round and reactive. Extraocular motor are intact Neck: Supple with full range of motion. No rigidity or meningismus Chest: Nontender Lungs: Clear to auscultation bilaterally no crackles rales or wheezing Heart: Normal S1-S2, Regular rhythm and rate. No murmur, S3, or S4 Abdomen: Soft , diffuse tenderness to palpation, nondistended , bowel sounds are present. No guarding no rebound tenderness , No masses or organomegaly. No costovertebral temporal angle mass Extremities: Normal to inspection, no edema no cyanosis Neurologic: Normal mental status, speech normal, cranial nerves II through XII are intact, motor and sensory are intact, no focal weakness Skin: tenting of skin. no rashes or lesions appreciated Additional Comments Home medications reviewed CARLOS CANTOR MD Apr 06, 2019 18:46
[2019-04-06] MEDS ORDERED: ERTAPENEM SODIUM 1 GM in SOD CHLORIDE 0.9% 100 ML IVPB SCH (19:00)
[2019-04-06 20:20] VITALS: BP 138/63; PULSE 69; RESP 18
[2019-04-06] MEDS ORDERED: CEFEPIME 1GM/50 ML (PMX) 50 ML IV SCH (21:00)
[2019-04-06] MEDS: METOCLOPRAMIDE 10 MG INJ IV SCH (21:16)
[2019-04-06] MEDS: SOD CHLORIDE 0.9% 1,000 ML IV SCH (21:16)
[2019-04-06] MEDS: MEROPENEM 1 GM/50ML(PMX) 50 ML IVPB SCH (21:17)
[2019-04-06 21:52] VITALS: Ht 147.3 cm; Wt 47.5 kg
[2019-04-07] MEDS: METOCLOPRAMIDE 10 MG INJ IV SCH ×4 (01:06→17:40)
[2019-04-07 02:10] VITALS: BP 117/57; PULSE 75; RESP 18
[2019-04-07] MEDS: SOD CHLORIDE 0.9% 1,000 ML IV SCH ×3 (03:59→22:13)
[2019-04-07] MEDS: PANTOPRAZOLE (EC) 40 MG TAB PO SCH (06:18)
[2019-04-07 08:15] VITALS: BP 132/65; PULSE 71; RESP 17
[2019-04-07] MEDS: MEROPENEM 1 GM/50ML(PMX) 50 ML IVPB SCH ×2 (08:56→20:08)
[2019-04-07] MEDS: ENOXAPARIN 40 MG/0.4 ML SYG SC SCH (08:56)
--- NOTE | 2019-04-07 09:08 | CONS ---
DATE OF ADMISSION: 04/06/2019 DATE OF CONSULTATION: 04/06/2019 TYPE OF CONSULTATION: Infectious disease. REASON FOR CONSULTATION: Antibiotic management. HISTORY OF PRESENT ILLNESS: Jayda Funk is a 73-year-old female who came into the Emergency R oom with generalized weakness and gastroparesis. She has had generalized weakness for the last 2 day s as well as dizziness. She has trouble walking and has nausea, history of recurrent urinary tract i nfections and gastroparesis. She has no nausea or vomiting. No chest pain or shortness of breath. Her past problems include: 1. Multiple stones in the right kidney measuring up to 5 mm, all of which are nonobstructing. 2. Nonobstructing left renal stones measuring up to 10 mm. She has a 3 cm left renal cyst, chronic gastroparesis, chronic recurrent abdominal pain, anemia, depression. PAST SURGICAL HISTORY: Status post cholecystectomy and hysterectomy. PAST SURGICAL HISTORY: Includes 2 heart valve repair, abdominal surgery, hiatal hernia repair and coronado rgery to C4-C5 spine. She also has a history of anxiety. FAMILY HISTORY: Noncontributory. SOCIAL HISTORY: She does not smoke, drink or abuse drugs. ALLERGIES: None to penicillin, sulfa or foods. MEDICATIONS: Per chart. REVIEW OF SYSTEMS: As per HPI. PHYSICAL EXAMINATION: GENERAL: She is somewhat dehydrated, in no acute distress. VITAL SIGNS: Stable. She is afebrile. SKIN: Without generalized rash. HEENT: Within normal limits. NECK: Supple. LYMPH NODES: None palpable. CHEST: Decreased breath sounds at the bases. HEART: Without murmur or gallop. ABDOMEN: Soft, nontender, without organosplenomegaly or masses. EXTREMITIES: Without cyanosis, clubbing, or edema. RECTAL AND GENITAL: Deferred. NEUROLOGIC: No focal neurological abnormalities. ANCILLARY LABORATORY DATA: White count is 6.5 with 80% neutrophils, H and H 10.8, 3.4, platele t count 225,000. BUN and creatinine 33/1.11. She comes with acute weakness. Her urine shows 2+ kylah kocyte esterase, greater than 30 12, 36 white cells, 182 red blood cells are female. IMPRESSION AND PLAN: The patient has evidence of cystitis, and she was started initially on cefepime and ertapenem and now she is on meropenem 1 gram q.12h. We are going to continue her on current the rapy. I will dictate my findings to the hospitalists. She has been 1 gram q.12h. She has a history of ESBL from 2014, so will cover ESBL at this point. Dictated By: BRANDON GARCIA MD, JD/NTS Conf#: [id number] DID#: [id number] CC: CARLOS CANTOR MD;*End*
[2019-04-07 14:20] VITALS: BP 143/76; PULSE 73; RESP 16
--- NOTE | 2019-04-07 14:44 | CONS ---
Assessment/Plan Assessment/Plan Hospital Course (Demo Recall) Patient is alert feels better looks comfortable no fevers overnight WBC 6.3 no shift no bands BUN 28 creatinine 1.02 Urine culture pending Antimicrobials: Meropenem Physical examination: This is a fragile well-developed elderly woman who is alert in no distress. Head atraumatic normocephalic neck is supple chest rise symmetrical breath sounds clear heart S1-S2 abdomen soft bowel sounds present extremities without cyanosis Assessment: 1. Urinary tract infection as per urinalysis 2. Gastroparesis 3. STEF Plan: Continue meropenem as patient has history of ESBL growing in the urine, check bladder scan to make sure she does not retain urine, follow final cultures Consultation Date/Type/Reason Admit Date/Time Apr 06, 2019 at 17:23 Initial Consult Date Type of Consult id Date/Time of Note DATE: 04/07/19 TIME: 14:44 Exam/Review of Systems Exam Vitals Vital Signs Date Temp Pulse Resp B/P (MAP) Pulse Ox O2 O2 Flow FiO2 Time Delivery Rate 04/07/19 98.3 73 16 143/76 97 High Flow 14:20 (98) Intake and Output 04/06/19 04/06/19 04/07/19 1515:00 23:00 07:00 IntakeIntake Total 530 ml 990 ml BalanceBalance 530 ml 990 ml Results Result Diagram: 04/07/19 0601 04/07/19 0601 Results 24hrs Laboratory Tests Test 04/06/19 16:35 04/06/19 17:15 04/07/19 06:01 Urine Color YELLOW Urine Clarity CLOUDY A Urine pH 5.0 Urine Specific [place] 1.021 Urine Ketones NEGATIVE Urine Nitrite NEGATIVE Urine Bilirubin NEGATIVE Urine Urobilinogen NEGATIVE Urine Leukocyte Esterase 2+ H Urine Microscopic RBC > 182 H Urine Microscopic WBC 36 H Urine Mucus FEW A Urine Hemoglobin 3+ H Urine Glucose 1+ H Urine Total Protein 1+ H White Blood Count 6.5 # 6.3 Red Blood Count 3.88 L 3.52 L Hemoglobin 10.8 L 9.8 L Hematocrit 33.4 L 30.9 L Mean Corpuscular Volume 86.1 87.8 Mean Corpuscular Hemoglobin 27.8 L 27.8 L Mean Corpuscular Hemoglobin Concent 32.3 31.7 L Red Cell Distribution Width 13.8 13.8 Platelet Count 225 # 213 Mean Platelet Volume 10.2 10.4 Immature Granulocytes % 0.300 0.300 Neutrophils % 80.3 H 69.5 Lymphocytes % 11.5 L 17.4 Monocytes % 5.7 8.5 Eosinophils % 1.4 3.5 Basophils % 0.8 0.8 Nucleated Red Blood Cells % 0.0 0.0 Immature Granulocytes # 0.020 0.020 Neutrophils # 5.2 4.3 Lymphocytes # 0.8 1.1 Monocytes # 0.4 0.5 Eosinophils # 0.1 0.2 Basophils # 0.1 0.1 Nucleated Red Blood Cells # 0.0 0.0 Sodium Level 142 144 Potassium Level 4.1 4.4 Chloride Level 109 110 Carbon Dioxide Level 26 27 Anion Gap 7 7 Blood Urea Nitrogen 33 H 28 H Creatinine 1.11 H 1.02 H Est Glomerular Filtrat Rate mL/min Glucose Level 114 107 Calcium Level 8.8 8.6 Total Bilirubin 0.3 Direct Bilirubin 0.00 Indirect Bilirubin 0.3 Aspartate Amino Transf (AST/SGOT) 21 Alanine Aminotransferase (ALT/SGPT) 17 Alkaline Phosphatase 78 Troponin I < 0.012 Total Protein 7.4 Albumin 3.9 Globulin 3.50 H Albumin/Globulin Ratio 1.11 Lipase 207 Magnesium Level 1.9 Medications Medication Current Medications Docusate Sodium (Colace) 200 mg BID PRN PO CONSTIPATION; Start 04/06/19 at 18:30 Lorazepam (Ativan) 0.5 mg Q4H PRN PO ANXIETY Last administered on 04/06/19at 21:35; Admin Dose 0.5 MG; Start 04/06/19 at 18:30 Simethicone (Mylicon) 120 mg Q6 PRN PO Gas; Start 04/06/19 at 18:30 Metoclopramide HCl (Reglan) 10 mg Q6 IV Last administered on 04/07/19at 12:37; Admin Dose 10 MG; Start 04/06/19 at 18:30 Sodium Chloride 1,000 ml @ 100 mls/hr Q10H IV Last administered on 04/07/19at 08:56; Admin Dose 100 MLS/HR; Start 04/06/19 at 18:20 IV Flush (NS 3 ml) 3 ml PER PROTOCOL IV ; Start 04/06/19 at 18:30 Ondansetron HCl (Zofran Inj) 4 mg Q6H PRN IV NAUSEA/VOMITING; Start 04/06/19 at 18:30 Acetaminophen (Tylenol Tab) 650 mg Q6H PRN PO .PAIN 1-3 OR TEMP; Start 04/06/19 at 18:30 Pantoprazole (Protonix Tab) 40 mg DAILY@06 PO Last administered on 04/07/19at 06:18; Admin Dose 40 MG; Start 04/07/19 at 06:00 Enoxaparin Sodium (Lovenox) 40 mg DAILY SC ; Start 04/07/19 at 09:00 Meropenem/Sodium Chloride 50 ml @ 100 mls/hr Q12H IVPB Last administered on 04/07/19at 08:56; Admin Dose 100 MLS/HR; Start 04/06/19 at 19:30 MALIKA HERCULES NP Apr 07, 2019 14:44
--- NOTE | 2019-04-07 16:24 | PN ---
Date/Time of Note Date/Time of Note DATE: 04/07/19 TIME: 16:20 Assessment/Plan VTE Prophylaxis Risk score (from Ns)>0 risk: 4 SCD applied (from Ns): Yes Pharmacological prophylaxis: LMWH Lines/Catheters IV Catheter Type (from Nrs): Peripheral IV Urinary Cath still in place: No Assessment/Plan Assessment/Plan 1. Acute UTI - Patient has a history of ESBL noted on UCx from 2014. - ID consultation appreciated and will continue on Meropenem - continue IVF - denies any dysuria and vitals remain stable 2. Gastroparesis - will continue on Reglan IV - monitor BMs 3. Anxiety/depression - continue home Ativan dose 4. Chronic abdominal pain - continue Tylenol PRN for discomfort per patients request 5. STEF - improving - most likely secondary to UTI and dehydration 6. Acute dehydration- improving - continue IVF 7. Disposition - Will touch base with ID regarding discharge plan for antibiotics. Patient concerned about d/c prior to Tuesday so can meet with her SW on Tuesday at 2 regarding IHSS Result Diagram: 04/07/19 0604/07/19 0601 Results 24hrs Laboratory Tests Test 04/06/19 16:35 04/06/19 17:15 04/07/19 06:01 Urine Color YELLOW Urine Clarity CLOUDY A Urine pH 5.0 Urine Specific [place] 1.021 Urine Ketones NEGATIVE Urine Nitrite NEGATIVE Urine Bilirubin NEGATIVE Urine Urobilinogen NEGATIVE Urine Leukocyte Esterase 2+ H Urine Microscopic RBC > 182 H Urine Microscopic WBC 36 H Urine Mucus FEW A Urine Hemoglobin 3+ H Urine Glucose 1+ H Urine Total Protein 1+ H White Blood Count 6.5 # 6.3 Red Blood Count 3.88 L 3.52 L Hemoglobin 10.8 L 9.8 L Hematocrit 33.4 L 30.9 L Mean Corpuscular Volume 86.1 87.8 Mean Corpuscular Hemoglobin 27.8 L 27.8 L Mean Corpuscular Hemoglobin Concent 32.3 31.7 L Red Cell Distribution Width 13.8 13.8 Platelet Count 225 # 213 Mean Platelet Volume 10.2 10.4 Immature Granulocytes % 0.300 0.300 Neutrophils % 80.3 H 69.5 Lymphocytes % 11.5 L 17.4 Monocytes % 5.7 8.5 Eosinophils % 1.4 3.5 Basophils % 0.8 0.8 Nucleated Red Blood Cells % 0.0 0.0 Immature Granulocytes # 0.020 0.020 Neutrophils # 5.2 4.3 Lymphocytes # 0.8 1.1 Monocytes # 0.4 0.5 Eosinophils # 0.1 0.2 Basophils # 0.1 0.1 Nucleated Red Blood Cells # 0.0 0.0 Sodium Level 142 144 Potassium Level 4.1 4.4 Chloride Level 109 110 Carbon Dioxide Level 26 27 Anion Gap 7 7 Blood Urea Nitrogen 33 H 28 H Creatinine 1.11 H 1.02 H Est Glomerular Filtrat Rate mL/min Glucose Level 114 107 Calcium Level 8.8 8.6 Total Bilirubin 0.3 Direct Bilirubin 0.00 Indirect Bilirubin 0.3 Aspartate Amino Transf (AST/SGOT) 21 Alanine Aminotransferase (ALT/SGPT) 17 Alkaline Phosphatase 78 Troponin I < 0.012 Total Protein 7.4 Albumin 3.9 Globulin 3.50 H Albumin/Globulin Ratio 1.11 Lipase 207 Magnesium Level 1.9 Subjective 24 Hr Interval Summary Free Text/Dictation Patient requesting to go home so can meet with 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 States she wants to be discharged on PO antibiotics if possible. Discussed risk of ESBL given past history and will need IV antibiotics as outpatient. Exam/Review of Systems Exam Vitals Vital Signs Date Temp Pulse Resp B/P (MAP) Pulse Ox O2 O2 Flow FiO2 Time Delivery Rate 04/07/19 98.3 73 16 143/76 97 High Flow 14:20 (98) Intake and Output 04/06/19 04/06/19 04/07/19 1515:00 23:00 07:00 IntakeIntake Total 530 ml 990 ml BalanceBalance 530 ml 990 ml Exam General: Patient is a pleasant female,no acute distrss Neck: Supple Chest: Nontender Lungs: Clear to auscultation bilaterally no crackles rales or wheezing Heart: Normal S1-S2, Regular rhythm and rate. No murmur, S3, or S4 Abdomen: Soft , diffuse tenderness to palpation, nondistended , bowel sounds are present. No guarding no rebound tenderness Extremities: Normal to inspection, no edema no cyanosis Results Results 24hrs Laboratory Tests Test 04/06/19 16:35 04/06/19 17:15 04/07/19 06:01 Urine Color YELLOW Urine Clarity CLOUDY A Urine pH 5.0 Urine Specific [place] 1.021 Urine Ketones NEGATIVE Urine Nitrite NEGATIVE Urine Bilirubin NEGATIVE Urine Urobilinogen NEGATIVE Urine Leukocyte Esterase 2+ H Urine Microscopic RBC > 182 H Urine Microscopic WBC 36 H Urine Mucus FEW A Urine Hemoglobin 3+ H Urine Glucose 1+ H Urine Total Protein 1+ H White Blood Count 6.5 # 6.3 Red Blood Count 3.88 L 3.52 L Hemoglobin 10.8 L 9.8 L Hematocrit 33.4 L 30.9 L Mean Corpuscular Volume 86.1 87.8 Mean Corpuscular Hemoglobin 27.8 L 27.8 L Mean Corpuscular Hemoglobin Concent 32.3 31.7 L Red Cell Distribution Width 13.8 13.8 Platelet Count 225 # 213 Mean Platelet Volume 10.2 10.4 Immature Granulocytes % 0.300 0.300 Neutrophils % 80.3 H 69.5 Lymphocytes % 11.5 L 17.4 Monocytes % 5.7 8.5 Eosinophils % 1.4 3.5 Basophils % 0.8 0.8 Nucleated Red Blood Cells % 0.0 0.0 Immature Granulocytes # 0.020 0.020 Neutrophils # 5.2 4.3 Lymphocytes # 0.8 1.1 Monocytes # 0.4 0.5 Eosinophils # 0.1 0.2 Basophils # 0.1 0.1 Nucleated Red Blood Cells # 0.0 0.0 Sodium Level 142 144 Potassium Level 4.1 4.4 Chloride Level 109 110 Carbon Dioxide Level 26 27 Anion Gap 7 7 Blood Urea Nitrogen 33 H 28 H Creatinine 1.11 H 1.02 H Est Glomerular Filtrat Rate mL/min Glucose Level 114 107 Calcium Level 8.8 8.6 Total Bilirubin 0.3 Direct Bilirubin 0.00 Indirect Bilirubin 0.3 Aspartate Amino Transf (AST/SGOT) 21 Alanine Aminotransferase (ALT/SGPT) 17 Alkaline Phosphatase 78 Troponin I < 0.012 Total Protein 7.4 Albumin 3.9 Globulin 3.50 H Albumin/Globulin Ratio 1.11 Lipase 207 Magnesium Level 1.9 Medications Medication Current Medications Docusate Sodium (Colace) 200 mg BID PRN PO CONSTIPATION; Start 04/06/19 at 18:30 Lorazepam (Ativan) 0.5 mg Q4H PRN PO ANXIETY Last administered on 04/06/19at 21:35; Admin Dose 0.5 MG; Start 04/06/19 at 18:30 Simethicone (Mylicon) 120 mg Q6 PRN PO Gas; Start 04/06/19 at 18:30 Metoclopramide HCl (Reglan) 10 mg Q6 IV Last administered on 04/07/19at 12:37; Admin Dose 10 MG; Start 04/06/19 at 18:30 Sodium Chloride 1,000 ml @ 100 mls/hr Q10H IV Last administered on 04/07/19at 08:56; Admin Dose 100 MLS/HR; Start 04/06/19 at 18:20 IV Flush (NS 3 ml) 3 ml PER PROTOCOL IV ; Start 04/06/19 at 18:30 Ondansetron HCl (Zofran Inj) 4 mg Q6H PRN IV NAUSEA/VOMITING; Start 04/06/19 at 18:30 Acetaminophen (Tylenol Tab) 650 mg Q6H PRN PO .PAIN 1-3 OR TEMP; Start 04/06/19 at 18:30 Pantoprazole (Protonix Tab) 40 mg DAILY@06 PO Last administered on 04/07/19at 06:18; Admin Dose 40 MG; Start 04/07/19 at 06:00 Enoxaparin Sodium (Lovenox) 40 mg DAILY SC ; Start 04/07/19 at 09:00 Meropenem/Sodium Chloride 50 ml @ 100 mls/hr Q12H IVPB Last administered on 04/07/19at 08:56; Admin Dose 100 MLS/HR; Start 04/06/19 at 19:30 CARLOS CANTOR MD Apr 07, 2019 16:24
[2019-04-07 20:00] VITALS: BP 142/80; PULSE 76; RESP 18
[2019-04-08 02:00] VITALS: BP 127/67; PULSE 69; RESP 18
[2019-04-08] MEDS: METOCLOPRAMIDE 10 MG INJ IV SCH ×3 (05:28→12:00)
[2019-04-08] MEDS: PANTOPRAZOLE (EC) 40 MG TAB PO SCH (05:29)
[2019-04-08 08:12] VITALS: BP 133/62; PULSE 62; RESP 18
[2019-04-08] MEDS: SOD CHLORIDE 0.9% 1,000 ML IV SCH (08:36)
[2019-04-08] MEDS: MEROPENEM 1 GM/50ML(PMX) 50 ML IVPB SCH (08:37)
[2019-04-08] MEDS: ENOXAPARIN 40 MG/0.4 ML SYG SC SCH (08:37)
--- NOTE | 2019-04-08 11:20 | CONS ---
Assessment/Plan Assessment/Plan Hospital Course (Demo Recall) No events, no fevers Urine culture cw contaminant Antimicrobials: Meropenem Physical examination: This is a fragile well-developed elderly woman who is alert in no distress. Head atraumatic normocephalic neck is supple chest rise symmetrical breath sounds clear heart S1-S2 abdomen soft bowel sounds present extremities without cyanosis Assessment: 1. Urinary tract infection as per urinalysis 2. Gastroparesis 3. STEF Plan: Give a dose o Fosfomycin, anticipate dc on Amoxil given symptomatic improvement Consultation Date/Type/Reason Admit Date/Time Apr 06, 2019 at 17:23 Initial Consult Date Type of Consult id Date/Time of Note DATE: 04/08/19 TIME: 11:19 Exam/Review of Systems Exam Vitals Vital Signs Date Temp Pulse Resp B/P (MAP) Pulse Ox O2 O2 Flow FiO2 Time Delivery Rate 04/08/19 98.6 62 18 133/62 96 08:12 (85) 04/08/19 Room Air 02:00 Intake and Output 04/07/19 04/07/19 04/08/19 1515:00 23:00 07:00 IntakeIntake Total 1900 ml 950 ml 1000 ml BalanceBalance 1900 ml 950 ml 1000 ml Results Result Diagram: 04/08/19 0549 04/08/19 0549 Results 24hrs Laboratory Tests Test 04/08/19 05:49 White Blood Count 5.7 Red Blood Count 3.51 L Hemoglobin 9.7 L Hematocrit 30.1 L Mean Corpuscular Volume 85.8 Mean Corpuscular Hemoglobin 27.6 L Mean Corpuscular Hemoglobin Concent 32.2 Red Cell Distribution Width 13.5 Platelet Count 213 Mean Platelet Volume 10.8 H Immature Granulocytes % 0.400 Neutrophils % 67.3 Lymphocytes % 19.3 Monocytes % 7.7 Eosinophils % 4.4 Basophils % 0.9 Nucleated Red Blood Cells % 0.0 Immature Granulocytes # 0.020 Neutrophils # 3.9 Lymphocytes # 1.1 Monocytes # 0.4 Eosinophils # 0.3 Basophils # 0.1 Nucleated Red Blood Cells # 0.0 Sodium Level 142 Potassium Level 4.0 Chloride Level 112 H Carbon Dioxide Level 25 Anion Gap 5 Blood Urea Nitrogen 20 Creatinine 0.77 Glucose Level 106 Calcium Level 8.4 Phosphorus Level 3.4 Magnesium Level 1.8 Albumin 3.1 L Medications Medication Current Medications Docusate Sodium (Colace) 200 mg BID PRN PO CONSTIPATION; Start 04/06/19 at 18:30 Lorazepam (Ativan) 0.5 mg Q4H PRN PO ANXIETY Last administered on 04/06/19 21:35; Admin Dose 0.5 MG; Start 04/06/19 at 18:30 Simethicone (Mylicon) 120 mg Q6 PRN PO Gas; Start 04/06/19 at 18:30 Metoclopramide HCl (Reglan) 10 mg Q6 IV Last administered on 04/07/19 17:40; Admin Dose 10 MG; Start 04/06/19 at 18:30 Sodium Chloride 1,000 ml @ 100 mls/hr Q10H IV Last administered on 04/08/19 08:36; Admin Dose 100 MLS/HR; Start 04/06/19 at 18:20 IV Flush (NS 3 ml) 3 ml PER PROTOCOL IV ; Start 04/06/19 at 18:30 Ondansetron HCl (Zofran Inj) 4 mg Q6H PRN IV NAUSEA/VOMITING; Start 04/06/19 at 18:30 Acetaminophen (Tylenol Tab) 650 mg Q6H PRN PO .PAIN 1-3 OR TEMP Last administered on 04/08/19 08:58; Admin Dose 650 MG; Start 04/06/19 at 18:30 Pantoprazole (Protonix Tab) 40 mg DAILY@06 PO Last administered on 04/07/19 06:18; Admin Dose 40 MG; Start 04/07/19 at 06:00 Enoxaparin Sodium (Lovenox) 40 mg DAILY SC ; Start 04/07/19 at 09:00 Meropenem/Sodium Chloride 50 ml @ 100 mls/hr Q12H IVPB Last administered on 04/08/19 08:37; Admin Dose 100 MLS/HR; Start 04/06/19 at 19:30 MALIKA HERCULES NP Apr 08, 2019 11:20
--- NOTE | 2019-04-08 11:46 | PN ---
Date/Time of Note Date/Time of Note DATE: 04/08/19 TIME: 11:43 Assessment/Plan VTE Prophylaxis Risk score (from Ns)>0 risk: 2 SCD applied (from Ns): Yes Pharmacological prophylaxis: LMWH Lines/Catheters IV Catheter Type (from Nrs): Peripheral IV Urinary Cath still in place: No Assessment/Plan Assessment/Plan 1. Acute UTI - Urine cx showing mix gram positive - Id on board and recommending Fosfomycin and d/c on Amoxicillin. Appreciate consultation - denies any dysuria and vitals remain stable 2. Gastroparesis - will continue Erythromycin PO - monitor BMs 3. Anxiety/depression - continue home Ativan dose 4. Chronic abdominal pain - continue Tylenol PRN for discomfort per patients request 5. STEF - resolved 6. Acute dehydration- resolved 7. Disposition - Medically stable for discharge home Result Diagram: 04/08/19 0549 04/08/19 0549 Results 24hrs Laboratory Tests Test 04/08/19 05:49 White Blood Count 5.7 Red Blood Count 3.51 L Hemoglobin 9.7 L Hematocrit 30.1 L Mean Corpuscular Volume 85.8 Mean Corpuscular Hemoglobin 27.6 L Mean Corpuscular Hemoglobin Concent 32.2 Red Cell Distribution Width 13.5 Platelet Count 213 Mean Platelet Volume 10.8 H Immature Granulocytes % 0.400 Neutrophils % 67.3 Lymphocytes % 19.3 Monocytes % 7.7 Eosinophils % 4.4 Basophils % 0.9 Nucleated Red Blood Cells % 0.0 Immature Granulocytes # 0.020 Neutrophils # 3.9 Lymphocytes # 1.1 Monocytes # 0.4 Eosinophils # 0.3 Basophils # 0.1 Nucleated Red Blood Cells # 0.0 Sodium Level 142 Potassium Level 4.0 Chloride Level 112 H Carbon Dioxide Level 25 Anion Gap 5 Blood Urea Nitrogen 20 Creatinine 0.77 Glucose Level 106 Calcium Level 8.4 Phosphorus Level 3.4 Magnesium Level 1.8 Albumin 3.1 L Subjective 24 Hr Interval Summary Free Text/Dictation Patient states she feeling better and denies any acute issues. Still with mild abdominal pain but chronic. Still focused on not dying and upset she was started on hospice Exam/Review of Systems Exam Vitals Vital Signs Date Temp Pulse Resp B/P (MAP) Pulse Ox O2 O2 Flow FiO2 Time Delivery Rate 04/08/19 98.6 62 18 133/62 96 08:12 (85) 04/08/19 Room Air 02:00 Intake and Output 04/07/19 04/07/19 04/08/19 1515:00 23:00 07:00 IntakeIntake Total 1900 ml 950 ml 1000 ml BalanceBalance 1900 ml 950 ml 1000 ml Exam General: Patient is a pleasant female,no acute distress Neck: Supple Chest: Nontender Lungs: Clear to auscultation bilaterally no crackles rales or wheezing Heart: Normal S1-S2, Regular rhythm and rate. No murmur, S3, or S4 Abdomen: Soft ,mild mid abdominal tenderness, nondistended , bowel sounds are present. No guarding no rebound tenderness Extremities: Normal to inspection, no edema no cyanosis Results Results 24hrs Laboratory Tests Test 04/08/19 05:49 White Blood Count 5.7 Red Blood Count 3.51 L Hemoglobin 9.7 L Hematocrit 30.1 L Mean Corpuscular Volume 85.8 Mean Corpuscular Hemoglobin 27.6 L Mean Corpuscular Hemoglobin Concent 32.2 Red Cell Distribution Width 13.5 Platelet Count 213 Mean Platelet Volume 10.8 H Immature Granulocytes % 0.400 Neutrophils % 67.3 Lymphocytes % 19.3 Monocytes % 7.7 Eosinophils % 4.4 Basophils % 0.9 Nucleated Red Blood Cells % 0.0 Immature Granulocytes # 0.020 Neutrophils # 3.9 Lymphocytes # 1.1 Monocytes # 0.4 Eosinophils # 0.3 Basophils # 0.1 Nucleated Red Blood Cells # 0.0 Sodium Level 142 Potassium Level 4.0 Chloride Level 112 H Carbon Dioxide Level 25 Anion Gap 5 Blood Urea Nitrogen 20 Creatinine 0.77 Glucose Level 106 Calcium Level 8.4 Phosphorus Level 3.4 Magnesium Level 1.8 Albumin 3.1 L Medications Medication Current Medications Docusate Sodium (Colace) 200 mg BID PRN PO CONSTIPATION; Start 04/06/19 at 18:30 Lorazepam (Ativan) 0.5 mg Q4H PRN PO ANXIETY Last administered on 04/06/19at 21:35; Admin Dose 0.5 MG; Start 04/06/19 at 18:30 Simethicone (Mylicon) 120 mg Q6 PRN PO Gas; Start 04/06/19 at 18:30 Metoclopramide HCl (Reglan) 10 mg Q6 IV Last administered on 04/07/19at 17:40; Admin Dose 10 MG; Start 04/06/19 at 18:30 Sodium Chloride 1,000 ml @ 100 mls/hr Q10H IV Last administered on 04/08/19at 08:36; Admin Dose 100 MLS/HR; Start 04/06/19 at 18:20 IV Flush (NS 3 ml) 3 ml PER PROTOCOL IV ; Start 04/06/19 at 18:30 Ondansetron HCl (Zofran Inj) 4 mg Q6H PRN IV NAUSEA/VOMITING; Start 04/06/19 at 18:30 Acetaminophen (Tylenol Tab) 650 mg Q6H PRN PO .PAIN 1-3 OR TEMP Last administered on 04/08/19at 08:58; Admin Dose 650 MG; Start 04/06/19 at 18:30 Pantoprazole (Protonix Tab) 40 mg DAILY@06 PO Last administered on 04/07/19at 06:18; Admin Dose 40 MG; Start 04/07/19 at 06:00 Enoxaparin Sodium (Lovenox) 40 mg DAILY SC ; Start 04/07/19 at 09:00 Fosfomycin Tromethamine (Monurol) 3 gm ONCE ONCE PO ; Start 04/08/19 at 12:00; Stop 04/08/19 at 12:01 CARLOS CANTOR MD Apr 08, 2019 11:46
[2019-04-08] MEDS ORDERED: AMOX500T PO (11:51)
--- NOTE | 2019-04-08 11:53 | PDOCDIS ---
Discharge Instructions DIAGNOSIS Discharge Diagnosis 1. Acute UTI- resolved 2. Gastroparesis 3. Anxiety/depression 4. Chronic abdominal pain 5. Acute renal insufficiency- resolved 6. Acute dehydration- resolved CONDITION [id number] Patient Condition: [id number] Stable HOME CARE INSTRUCTIONS: [id number] Diet Instructions: [id number] Regular ACTIVITY: [id number] Activity Restrictions: [id number] No Restrictions FOLLOW UP/APPOINTMENTS Follow-up Plan 1. Follow up with your primary care physician in 1-2 weeks 2. Continue all medications as prescribed 3. Take Amoxicillin for another 5 days with next dose tomorrow morning 4. If experiencing any concerning symptoms, please go to the nearest emergency department 5. Continue keeping well hydrated and drink ensure/boost protein shakes with meals CARLOS CANTOR MD Apr 08, 2019 11:53
[2019-04-08] MEDS ORDERED: FOSFOMYCIN 3 GM PACKET PO ONE (12:00)
--- NOTE | 2019-04-08 13:56 | DS ---
Date/Time of Note Date/Time of Note DATE: 04/08/19 TIME: 13:54 Discharge Summary Admission/Discharge Info Admit Date/Time Apr 06, 2019 at 17:23 Discharge Date/Time 04/08/19 Discharge Diagnosis 1. Acute UTI- resolved 2. Gastroparesis 3. Anxiety/depression 4. Chronic abdominal pain 5. Acute renal insufficiency- resolved 6. Acute dehydration- resolved Patient Condition: Stable Consults Infectious disease- Dr. Tirado Hx of Present Illness 73 yo F with PMH Gastroparesis, nephrolithiasis, recurrent UTIs, and chronic abdominal pain presented to the ED for worsening weakness and dehydration. Patient was discharged from [facility] on 02/18/19 for treatment of UTI and nephrolithiasis and was discharged home. She states since discharge she feels as if she has been slowly declining. She has been trying to hydrate with Gatorade but urinary more frequently and feels as if she is not retaining her hydration. Patient also states she was able to ambulate prior to discharge but has been having more difficulty with ambulating due to fatigue. She does admit to severe chills and not feeling well 1 week ago but did not come into the hospital until today due to nausea. Patient states shes been under hospice care but unsure why. She does not feel as if she is going to in 6 months, which is what hospice physician told her but does not feel like her health is doing well. Patient denies any chest pain, shortness of breath, urinary complications, headache, diarrhea, or focal weakness. She does admit to chronic abdominal pain that she associates with her gastroparesis. Hospital Course Patient was admitted for workup of questionable UTI and treatment of acute dehydration. Urine studies were obtained and sent for cultures. Given patients history of ESBL UTI, ID was consulted for antibiotic recommendations. Patient was continued on meropenem and given urine culture with mix gram positive organisms, she was given a dose of Fosfomycin and d/c on Amoxicillin per ID recommendations. Patient was noted with STEF which was prerenal in etiology and resolved with IVF. Patients vitals remained stable and tolerated PO intake. Patients presenting symptoms improved significantly and she was discharged home in stable condition. Home Meds Active Scripts Amoxicillin Trihydrate (Amoxicillin) 500 Mg Tablet, 500 MG PO BID for 5 Days, #10 TAB Prov:CARLOS CANTOR MD 04/08/19 Simethicone* (Mylicon*) 80 Mg Tab, 120 MG PO Q6 PRN for Gas, #60 TAB 1 Refill Prov:MO MARIE S. 02/18/19 Docusate Sodium* (Colace*) 100 Mg Capsule, 200 MG PO BID PRN for CONSTIPATION, #30 CAP 1 Refill Prov:MO MARIE S. 02/18/19 Erythromycin* (Erythromycin* EC) 250 Mg Capsule.dr, 250 MG PO BID for gastroparesis, #60 2 Refills Prov:MO MARIE S. 02/18/19 Reported Medications Lorazepam* (Lorazepam*) 0.5 Mg Tablet, 0.5 MG PO Q4H PRN for ANXIETY, TAB 04/06/19 Discontinued Scripts Levofloxacin* (Levofloxacin*) 750 Mg Tablet, 750 MG PO DAILY for UTI for 5 Days, TAB Prov:MO MARIE S. 02/18/19 Ondansetron Hcl* (Zofran*) 4 Mg Tab, 4 MG PO Q6H PRN for NAUSEA AND OR VOMITING, #20 TAB Prov:MO MARIE S. 02/18/19 Follow-up Plan 1. Follow up with your primary care physician in 1-2 weeks 2. Continue all medications as prescribed 3. Take Amoxicillin for another 5 days with next dose tomorrow morning 4. If experiencing any concerning symptoms, please go to the nearest emergency department 5. Continue keeping well hydrated and drink ensure/boost protein shakes with meals Primary Care Provider Not On Staff Doctor Time spent on discharge: > 30 minutes Pending Labs Laboratory Tests Test 04/08/19 05:49 White Blood Count 5.7 10^3/ul (4.8-10.8) Red Blood Count 3.51 10^6/ul (4.20-5.40) Hemoglobin 9.7 g/dl (12.0-16.0) Hematocrit 30.1 % (37.0-47.0) Mean Corpuscular Volume 85.8 fl (82.0-101.0) Mean Corpuscular Hemoglobin 27.6 pg (29.0-33.0) Mean Corpuscular Hemoglobin Concent 32.2 g/dl (32.0-37.0) Red Cell Distribution Width 13.5 % (11.5-14.5) Platelet Count 213 10^3/UL (140-415) Mean Platelet Volume 10.8 fl (7.4-10.4) Immature Granulocytes % 0.400 % (0.001-0.429) Neutrophils % 67.3 % (39.0-77.0) Lymphocytes % 19.3 % (15.0-51.0) Monocytes % 7.7 % (0.0-11.0) Eosinophils % 4.4 % (0.0-7.0) Basophils % 0.9 % (0.0-2.0) Nucleated Red Blood Cells % 0.0 /100WBC (0.0-0.0) Immature Granulocytes # 0.020 10^3/ul (0.0-0.031) Neutrophils # 3.9 10^3/ul (1.6-7.5) Lymphocytes # 1.1 10^3/ul (0.8-2.9) Monocytes # 0.4 10^3/ul (0.3-0.9) Eosinophils # 0.3 10^3/ul (0.0-0.5) Basophils # 0.1 10^3/ul (0.0-0.1) Nucleated Red Blood Cells # 0.0 10^3/ul (0.0-0.0) Sodium Level 142 mmol/L (135-144) Potassium Level 4.0 mmol/L (3.5-5.1) Chloride Level 112 mmol/L (97-110) Carbon Dioxide Level 25 mmol/L (21-31) Anion Gap 5 (5-13) Blood Urea Nitrogen 20 mg/dl (7-20) Creatinine 0.77 mg/dl (0.44-1.00) Glucose Level 106 mg/dl (70-220) Calcium Level 8.4 mg/dl (8.4-10.2) Phosphorus Level 3.4 mg/dl (2.5-4.9) Magnesium Level 1.8 mg/dl (1.7-2.5) Albumin 3.1 g/dl (3.3-4.9) CARLOS CANTOR MD Apr 08, 2019 13:56
== END 2019-04-08 13:55 | disposition home or self-care (01) ==
LOC: E/R 14:33 → PP2 17:23 → INTOOBSV 17:23
PROVIDERS: ADMIT Internal Medicine; ATTEND Internal Medicine
DX: N30.90 Cystitis, unspecified without hematuria (principal); E86.0 Dehydration; N39.0 Urinary tract infection, site not specified; K31.84 Gastroparesis; G89.29 Other chronic pain; R10.9 Unspecified abdominal pain; F41.9 Anxiety disorder, unspecified; F32.9 Major depressive disorder, single episode, unspecified; N17.9 Acute kidney failure, unspecified
CPT/HCPCS: 80048; 80053; 80069; 81001; 83690; 83735; 84484; 85025; 86850; 86900; 86901; 87086; 93005; 96374; 99285; G0378; J0696; J1650; J2185; J2405; J2765; J7030; 99217

== ENCOUNTER 2019-05-27 16:08 | Emergency (ER) | payer MEDICARE, OTHER ==
[~2019-05-27] VITALS: Ht 160 cm; Wt 49.1 kg
[~2019-05-27 16:08] MED LIST changes: +AMOX500T PO; -LEVO750T8 PO; +LORA0.5T PO; +LORA1TAB PO; -ONDA4TAB13 PO; +ONDA4TAB14 PO; +TRAM50TA2 PO
[2019-05-27 16:30] VITALS: Ht 160 cm; Wt 49.1 kg
[2019-05-27] MEDS ORDERED: ONDANSETRON 4 MG INJ IV STA (18:41)
[2019-05-27] MEDS ORDERED: morphine 4 MG/ML VIAL IV STA (18:41)
[2019-05-27 20:59] VITALS: BP 144/72; PULSE 66; RESP 18
--- NOTE | 2019-05-27 21:15 | ERD ---
ER Documentation Chief Complaint Chief Complaint FEELS NUMBNESS ALL OVER BODY, DEHYDRATED, NO APPETITE X 1 WEEK HPI This is a pleasant 74-year-old female who complains of multiple complaints. She complains of numbness all over her body at times also complains of some aching pain in both of her arms hands right leg and right foot. She is had this off and on for a few days and she also feels like she is dehydrated because she says she has poor skin turgor but has had no nausea vomiting or diarrhea. She has a history of gastroparesis and is not having an exacerbation at this time. ROS All systems reviewed and are negative except as per history of present illness. Medications Home Meds Active Scripts Amoxicillin Trihydrate (Amoxicillin) 500 Mg Tablet, 500 MG PO BID for 5 Days, #10 TAB Prov:CARLOS CANTOR MD 04/08/19 Simethicone* (Mylicon*) 80 Mg Tab, 120 MG PO Q6 PRN for Gas, #60 TAB 1 Refill Prov:MO MARIE S. 02/18/19 Docusate Sodium* (Colace*) 100 Mg Capsule, 200 MG PO BID PRN for CONSTIPATION, #30 CAP 1 Refill Prov:MO MARIE S. 02/18/19 Erythromycin* (Erythromycin* EC) 250 Mg Capsule.dr, 250 MG PO BID for gastroparesis, #60 2 Refills Prov:MO MARIE S. 02/18/19 Reported Medications Lorazepam* (Lorazepam*) 0.5 Mg Tablet, 0.5 MG PO Q4H PRN for ANXIETY, TAB 04/06/19 Allergies Allergies: Coded Allergies: propofol (Verified Allergy, Intermediate, shaking, delusions, 04/06/19) hydromorphone (Verified Allergy, Unknown, HALLUCINATIONS,RASH,DIFFICULTY BREATHING,GI UPSET, 04/06/19) PMhx/Soc History of Surgery: Yes (Hernia Repair, Heart Valve Replacement, Hysterectomy) Anesthesia Reaction: No Hx Neurological Disorder: No Hx Respiratory Disorders: No Hx Cardiac Disorders: Yes (Valve Replacement Surgery) Hx Psychiatric Problems: Yes (anxiety) Hx Miscellaneous Medical Probl: No Hx Alcohol Use: No Hx Substance Use: No Hx Tobacco Use: No Smoking Status: Unknown if ever smoked FmHx Family History: No coronary disease Physical Exam Vitals Vital Signs Date Temp Pulse Resp B/P (MAP) Pulse Ox O2 O2 Flow FiO2 Time Delivery Rate 05/27/19 98.5 66 18 144/72 100 Room Air 20:59 (96) 05/27/19 98.5 67 20 151/83 98 Room Air 18:44 (105) 05/27/19 98.5 92 20 152/67 98 16:30 (95) Physical Exam Const: Well-developed, well-nourished Head: Atraumatic, normocephalic Eyes: Normal Conjunctiva, PERRLA, EOMI, normal sclera, no nystagmus ENT: Normal External Ears, Nose and Mouth, moist mucus membranes. Neck: Full range of motion. No meningismus, no lymphadenopathy. Resp: Clear to auscultation bilaterally, no wheezing, rhonchi, rales Cardio: Regular rate and rhythm, no murmurs, S1 S2 present Abd: Soft, non tender x 4, non distended. Normal bowel sounds, no guarding or rebound, no pulsitile abdominal masses or bruits Skin: No petechiae or rashes, no ecchymosis , no maculopapular rash Back: No midline or flank tenderness Ext: No cyanosis, or edema, FROM x 4, normal inspection, neurovascular ly intact x 4 Neur: Awake and alert, STR 5/5 x 4, sensation intact x 4, no focal findings, cerebellum intact Psych: Normal Mood and Affect Result Diagram: 05/27/19185505/27/191855 Results 24 hrs Laboratory Tests Test 05/27/19 18:56 White Blood Count 6.0 10^3/ul Red Blood Count 3.91 10^6/ul Hemoglobin 11.0 g/dl Hematocrit 34.7 % Mean Corpuscular Volume 88.7 fl Mean Corpuscular Hemoglobin 28.1 pg Mean Corpuscular Hemoglobin Concent 31.7 g/dl Red Cell Distribution Width 15.0 % Platelet Count 215 10^3/UL Mean Platelet Volume 10.8 fl Immature Granulocytes % 0.300 % Neutrophils % 73.1 % Lymphocytes % 15.9 % Monocytes % 7.3 % Eosinophils % 2.7 % Basophils % 0.7 % Nucleated Red Blood Cells % 0.0 /100WBC Immature Granulocytes # 0.020 10^3/ul Neutrophils # 4.4 10^3/ul Lymphocytes # 1.0 10^3/ul Monocytes # 0.4 10^3/ul Eosinophils # 0.2 10^3/ul Basophils # 0.0 10^3/ul Nucleated Red Blood Cells # 0.0 10^3/ul Sodium Level 141 mmol/L Potassium Level 3.8 mmol/L Chloride Level 104 mmol/L Carbon Dioxide Level 29 mmol/L Anion Gap 8 Blood Urea Nitrogen 36 mg/dl Creatinine 0.94 mg/dl Est Glomerular Filtrat Rate mL/min mL/min Glucose Level 109 mg/dl Calcium Level 9.7 mg/dl Total Bilirubin 0.3 mg/dl Direct Bilirubin 0.00 mg/dl Indirect Bilirubin 0.3 mg/dl Aspartate Amino Transf (AST/SGOT) 26 IU/L Alanine Aminotransferase (ALT/SGPT) 21 IU/L Alkaline Phosphatase 71 IU/L Troponin I < 0.012 ng/ml Total Protein 8.0 g/dl Albumin 4.3 g/dl Globulin 3.70 g/dl Albumin/Globulin Ratio 1.16 Current Medications Medications Dose Sig/Andres Start Time Status Last (Trade) Ordered Route PRN Stop Time Admin Dose Reason Admin Morphine 4 mg ONCE STAT 05/27/19 DC 05/27/19 Sulfate IV 18:41 19:09 (morphine) 05/27/19 18:42 Ondansetron 4 mg ONCE STAT 05/27/19 DC 05/27/19 HCl (Zofran IV 18:41 19:09 Inj) 05/27/19 18:42 Procedures/[facility] [id number] [address] [id number] Radiology Main Line: [phone] DIAGNOSTIC IMAGING REPORT Patient: MICHAEL MURPHY : 1945 Age: 74 Sex: F MR #: [id number] DOS: 05/27/19 1841 Ordering MD: AVILA ESTEVES DO Location: E/R Room/Bed: PROCEDURE: XR Chest. CLINICAL INDICATION: Chest pain TECHNIQUE: Single frontal radiograph of the chest. COMPARISON: CHEST 01/13/2019; LUPE DX CHEST 01/10/2018; LUPE DX CHEST 01/09/2018; SD DX CHEST 01/08/2018; SD CR CHEST 12/04/2017; CR CHEST 03/21/2017; CR CHEST 08/23/2016 FINDINGS: The lungs are clear. No pleural effusion. No pneumothorax. Normal heart size. Mitral clips present. IMPRESSION: No acute air space infiltrates. RPTAT: AADD .Nahid Baker MD, Date Time Electronically viewed and signed by .Nahid Baker MD, on 05/27/2019 19:36 .B/ CC: AVILA ESTEVES DO [id number] Patient is feeling better. Extensive discussion with home care will provide her with some Ativan for sleep Zofran for nausea and tramadol for pain Departure Diagnosis: Primary Impression: Multiple complaints Condition: Stable AVILA ESTEVES DO May 27, 2019 21:15
== END 2019-05-27 21:40 | disposition home or self-care (01) ==
LOC: E/R 16:08
DX: R20.0 Anesthesia of skin (principal); M79.604 Pain in right leg; M79.671 Pain in right foot; M79.601 Pain in right arm; M79.602 Pain in left arm; E86.0 Dehydration
CPT/HCPCS: 71045; 80053; 84484; 85025; 96374; 96375; 99284; J2270; J2405

== ENCOUNTER 2019-06-05 18:08 | Emergency (ER) | payer MEDICARE, OTHER ==
[~2019-06-05] VITALS: Ht 162.6 cm; Wt 50.0 kg
[~2019-06-05 18:08] MED LIST changes: +ACET325T33 PO; +ACET500C5 PO; +BEN25 PO; +CLIN300C10 PO; +TRIA15CR55 TOP
[2019-06-05 18:12] VITALS: BP 123/57; PULSE 80; RESP 16; Ht 162.6 cm; Wt 50.0 kg
== END 2019-06-05 19:45 | disposition home or self-care (01) ==
LOC: FTE 18:08
DX: M13.831 Other specified arthritis, right wrist (principal); M13.832 Other specified arthritis, left wrist
CPT/HCPCS: 99283

== ENCOUNTER 2019-06-09 09:20 | Emergency (ER) | payer MEDICARE, OTHER ==
[~2019-06-09] VITALS: Ht 147.3 cm; Wt 49.8 kg
[2019-06-09 09:24] VITALS: BP 167/67; PULSE 77; RESP 16; Ht 147.3 cm; Wt 49.8 kg
== END 2019-06-09 10:19 | disposition home or self-care (01) ==
LOC: FTE 09:20
DX: R21 Rash and other nonspecific skin eruption (principal)
CPT/HCPCS: 99283

== ENCOUNTER 2019-06-10 09:00 | Emergency (ER) | payer MEDICARE, OTHER ==
[~2019-06-10] VITALS: Ht 154.9 cm; Wt 49.0 kg
[2019-06-10 09:08] VITALS: Ht 154.9 cm; Wt 49.0 kg
[2019-06-10 11:23] VITALS: BP 143/60; PULSE 61; RESP 18
== END 2019-06-10 11:25 | disposition home or self-care (01) ==
LOC: FTE 09:00
DX: D64.9 Anemia, unspecified (principal); R21 Rash and other nonspecific skin eruption; M79.89 Other specified soft tissue disorders
CPT/HCPCS: 80053; 85025; 85610; 85730; 99283

== ENCOUNTER 2019-06-14 18:02 | Emergency (ER) | payer MEDICARE, OTHER ==
[2019-06-14 20:18] VITALS: BP 123/84; PULSE 81; RESP 18
== END 2019-06-14 20:18 | disposition home or self-care (01) ==
LOC: FTE 18:02
DX: S90.01XA Contusion of right ankle, initial encounter (principal); X58.XXXA Exposure to other specified factors, initial encounter; Y92.9 Unspecified place or not applicable
CPT/HCPCS: 73562; 73590; 93971

== ENCOUNTER 2019-06-20 19:29 | Emergency (ER) | payer MEDICARE, OTHER ==
[~2019-06-20] VITALS: Ht 147.3 cm; Wt 48.3 kg
[~2019-06-20 19:29] MED LIST changes: +ASPI325T30 PO; +CEPH-443 PO; +CEPH500C PO; +LORA-441 PO
[2019-06-20 19:38] VITALS: BP 147/63; PULSE 74; RESP 18; Ht 147.3 cm; Wt 48.3 kg
== END 2019-06-20 20:45 | disposition home or self-care (01) ==
LOC: E/R 19:29
DX: E86.0 Dehydration (principal); S40.022A Contusion of left upper arm, initial encounter; S80.11XA Contusion of right lower leg, initial encounter; X58.XXXA Exposure to other specified factors, initial encounter; Y92.9 Unspecified place or not applicable
CPT/HCPCS: 99282